=== PATIENT | female | born 1945 | race Caucasian/White ===

== ENCOUNTER → 2016-09-03 | Outpatient (CLI) | payer MEDICARE ==
--- NOTE | 2016-09-05 15:41 | PE ---
Nuclear medicine PET/CT HISTORY: Multiple myeloma Patient received 12.5 mCi F-18 FDG intravenously. Delayed scanning was performed from the skull throu gh the feet, whole-body exam. Exam correlated to the thoracic MRI 06 April 2016 Neck and chest: No suspicious hypermetabolic uptake. No evident adenopathy. Ill-defined area of incre ased attenuation present in the right upper lobe measures approximately 1.5 cm. Port-A-Cath present i n the left pectoral region, catheter tip within the superior vena cava. Abdomen pelvis: The liver shows a hypodense focus in the left lobe measuring 1 cm in size. Calcified fibroids within the uterus. No retroperitoneal adenopathy. Osseous structures: Diffuse areas of punched-out lesions present involving the posterior pelvis, sacr um, thoracic and lumbar spine, cervical spine and calvarium. No hypermetabolic uptake with the except ion of C6, SUV 4.5. Greater trochanters shows some mild increased uptake, SUV 3.5. IMPRESSION: The bulk of the abnormal bone lesions do not show associated hypermetabolic uptake, addit ional findings above.
== END | disposition home or self-care (01) ==
LOC: RADPETMAIN 08:17
PROVIDERS: ATTEND Internal Medicine Hematology & Oncology
DX: C90.00 Multiple myeloma not having achieved remission (principal); M89.8X9 Other specified disorders of bone, unspecified site
CPT/HCPCS: 78815; A9552

== ENCOUNTER → 2016-09-21 | Outpatient (CLI) | payer MEDICARE ==
--- NOTE | 2016-09-21 10:52 | XR ---
EXAMINATION TYPE: XR cervical spine comp DATE OF EXAM: 09/21/2016 10:39 AM COMPARISON: NONE HISTORY: Pain TECHNIQUE: Four views are submitted. FINDINGS: The odontoid is intact. There are no compression deformities. The prevertebral soft tissue structur es are within normal limits. Severe degenerative disc disease C5-C6 with sclerotic changes involving the endplates. Retrolisthesis of 2 mm at C5. Moderate degenerative disc disease C4-5 and C6-C7. Face t arthropathy at all levels. Foraminal encroachment at levels C3-C6. Mediport catheter noted. IMPRESSION: 1. Bilevel degenerative disc disease with severe changes at C5-C6 with vertebral body sclerosis which likely is discogenic. Facet arthropathy noted. Multilevel foraminal encroachment, correlate with MRI
== END | disposition home or self-care (01) ==
LOC: RADXRMAIN 10:26
PROVIDERS: ATTEND Internal Medicine Hematology & Oncology
DX: M50.321 Other cervical disc degeneration at C4-C5 level (principal); M46.92 Unspecified inflammatory spondylopathy, cervical region; C90.00 Multiple myeloma not having achieved remission; Z87.01 Personal history of pneumonia (recurrent)
CPT/HCPCS: 72050

== ENCOUNTER → 2016-11-01 | Outpatient (CLI) | payer MEDICARE ==
--- NOTE | 2016-11-01 17:00 | MR ---
MRI CERVICAL SPINE: CLINICAL HISTORY: Multiple myeloma and disc disease per order. Neck pain with left arm pain or weakne ss for 3 to 4 weeks per patient TECHNIQUE: Multiplanar, multisequence imaging of the cervical spine is performed without and with IV contrast, 10 cc of gadolinium was given intravenously. COMPARISON: PET/CT September 03, 2016. FINDINGS: Coronal images show levoconvex scoliosis centered in the upper thoracic spine. Sagittal weston ges of the cervical spine show the craniocervical junction to appear within normal limits. The cervi tamara and upper thoracic spinal cord is normal in course, caliber, and signal. Vertebral alignment is anatomic. The vertebral body heights are normal. There is moderate disc space narrowing C5-C6 level. Small posterior disc herniations are seen C4-C5 and C5-C6 level on sagittal images. Corresponding to area of PET abnormality there is diminished T1 and heterogeneous fairly isointense T2 signal with brito ggestion of heterogeneous enhancement centered at C5-C6 disc space involving C5 and C6 vertebra diffu sely. There is a 1.5 cm mucous retention cyst or polyp in the left inferior maxillary sinus on sagitt al image 2. Axial images show C2-C3 and C3-C4 levels to appear within normal limits. Axial images at C4-C5 level show mild broad based posterior disc protrusion mildly effacing anterior thecal sac, bilateral neural foramina are patent. Axial images at C5-C6 level show broad-based posterior disc protrusion effacing anterior thecal sac a nd causing mild bilateral neural foraminal narrowing. Axial images at C6-C7 and C7-T1 levels are felt within normal limits. IMPRESSION: Area of concern on PET/CT is centered at C5-C6 disc space with involvement of C5 and C6 v ertebra noted most prominent on the T1-weighted images, not typical appearance for myeloma, discitis/ osteomyelitis would need to be considered given the contiguous appearance and corresponding PET findi ngs. Clinical correlation advised. A Yellow message has been communicated to Jose Jorge MD via the [employer] ([employer] Critical [employer] system on 11/01/2016 4:57 PM, Message ID [id number].
== END | disposition home or self-care (01) ==
LOC: RADMRIMAIN 14:34
PROVIDERS: ATTEND Internal Medicine Hematology & Oncology
DX: C90.00 Multiple myeloma not having achieved remission (principal); M50.30 Other cervical disc degeneration, unspecified cervical region
CPT/HCPCS: 72156; A9577

== ENCOUNTER 2018-01-18 10:41 | Emergency (ER) | payer MEDICARE ==
--- NOTE | 2018-01-18 12:08 | ED ---
Fall HPI - General Chief Complaint: Fall Stated Complaint: fall, eye injury Time Seen by Provider: 01/18/18 11:18 Source: patient, RN notes reviewed Mode of arrival: ambulatory - History of Present Illness Initial Comments: This is a 72-year-old female who presents with complaints of left-sided facial pain and eye pain. She states she fell 2 days ago landing any woodpile striking her face and her head. No loss of consciousness denies any complaints of neck or back pain or other injuries. 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 She states her last pressure of her left eye was 21. She is concerned about this she denies any blindness or blurry vision she is complaining of left orbital pain but again no other injuries. She states her last tetanus shot was well within the last 10 years. No other modifying factors. MD Complaint: fall - Related Data Home Medications Medication Instructions Recorded Confirmed Zolpidem [Ambien] 10 mg PO HS 05/08/15 01/18/18 Aspirin EC [Ecotrin Low Dose] 81 mg PO DAILY 01/18/18 01/18/18 Brimonidine Tartrate [Alphagan P 1 drop BOTH EYES BID 01/18/18 01/18/18 0.2% Ophth Soln] Brinzolamide [Azopt 1% Ophth Susp] 1 drop BOTH EYES BID 01/18/18 01/18/18 Dexamethasone 20 mg PO FR 01/18/18 01/18/18 Lenalidomide [Revlimid] 10 mg PO DIRECTED 01/18/18 01/18/18 Omeprazole 40 mg PO DAILY 01/18/18 01/18/18 amLODIPine [Norvasc] 2.5 mg PO BID 01/18/18 01/18/18 Allergies Allergy/AdvReac Type Severity Reaction Status Date / Time Sulfa (Sulfonamide Allergy Rash/Hives Verified 01/18/18 12:24 Antibiotics) Review of Systems ROS Statement: Those systems with pertinent positive or pertinent negative responses have been documented in the HPI. ROS Other: All systems not noted in ROS Statement are negative. Past Medical History Past Medical History: Cancer, Eye Disorder, Hypertension, Skin Disorder Additional Past Medical History / Comment(s): Dx. with Multiple Myeloma in 2010 , has a rash on her shoulders, Dr. Jorge is aware. Just finished series of antxb. for bronchitis. Recent abnormal labs. Glaucoma. History of Any Multi-Drug Resistant Organisms: None Reported Past Surgical History: Appendectomy Additional Past Surgical History / Comment(s): Stem cell transplant in 2011, port placement in 2010. Past Anesthesia/Blood Transfusion Reactions: No Reported Reaction Past Psychological History: No Psychological Hx Reported Smoking Status: Never smoker Past Alcohol Use History: None Reported Past Drug Use History: None Reported - Past Family History Mother Family Medical History: No Reported History General Exam - General Exam Comments Initial Comments: This is a well-developed well-nourished awake alert oriented 3 female she demonstrates a Juan Carlos Coma Scale of 15 Limitations: no limitations General appearance: alert, in no apparent distress Head exam: Present: normocephalic Eye exam: Present: normal appearance, PERRL, EOMI, other (Intraocular pressure on the right is 10 on the left is 14) ENT exam: Present: normal oropharynx, mucous membranes moist, other ( Periorbital edema and ecchymosis and healing abrasion noted to the inferior orbit on the left no definite step-off or crepitation there is some tenderness palpation of the left eyebrow left forehead and CMH. There is abrasion seen over the knees but no tenderness palpation no evidence of any intranasal blood.) Neck exam: Present: normal inspection. Absent: tenderness, meningismus, lymphadenopathy Respiratory exam: Present: normal lung sounds bilaterally. Absent: respiratory distress, wheezes, rales, rhonchi, stridor Cardiovascular Exam: Present: regular rate, normal rhythm, normal heart sounds. Absent: systolic murmur, diastolic murmur, rubs, gallop, clicks GI/Abdominal exam: Present: soft Extremities exam: Present: normal inspection, full ROM, normal capillary refill. Absent: tenderness, pedal edema, joint swelling, calf tenderness Back exam: Present: full ROM, other (Evidence of mild kyphosis). Absent: tenderness, CVA tenderness (R), CVA tenderness (L), muscle spasm, vertebral tenderness Neurological exam: Present: alert, oriented X3, CN II-XII intact Psychiatric exam: Present: normal affect, normal mood Skin exam: Present: warm, dry. Absent: intact, normal color (Is noted above in the facial exam) Course Vital Signs 01/18/18 11:12 Temperature 98.3 F Pulse Rate 81 Respiratory 20 Rate Blood Pressure 146/89 O2 Sat by Pulse 97 Oximetry Medical Decision Making - Medical Decision Making I did discuss [employer] the patient and her patient will be discharged. [id number]-pay-[id number] pain medication when necessary - Radiology Data Radiology results: report reviewed (I did review the imaging and reports no acute findings.), image reviewed Disposition Clinical Impression: Fall, Facial contusion, Facial abrasion Disposition: HOME SELF-CARE Condition: Good Instructions: Abrasion (ED), Facial Contusion (ED) Additional Instructions: Keep the wounds clean and dry, avoid direct sunlight until it is fully healed Is patient prescribed a controlled substance at d/c from ED?: No Referrals: Noe Ross DO [Primary Care Provider] - 1-2 days
--- NOTE | 2018-01-18 12:15 | CT ---
EXAMINATION TYPE: CT brain wo con, CT orbits wo con DATE OF EXAM: 01/18/2018 COMPARISON: PET/CT dated 09/03/2016 HISTORY: Fall, eye injury CT DLP: 1348.80 mGycm Automated exposure control for dose reduction was used. TECHNIQUE: CT scan of the head and orbits is performed without contrast. FINDINGS: There is no acute intracranial hemorrhage or midline shift identified. There is diffuse v entricular and sulcal prominence consistent with diffuse age-related cerebral atrophy. There is low- attenuation in the periventricular white matter consistent with chronic small vessel ischemic change. There is a diffuse patulous appearance with innumerable osteolytic lesions seen within the calvarium compatible with this patient's known history of multiple myeloma. There is a 1.9 cm left maxillary sinus mucosal retention cyst. Scant polypoid mucosal thickening is s een within the anterior ethmoid sinuses and scant mucosal thickening is seen within the right maxilla ry sinus on coronal images. Remaining visualized paranasal sinuses and mastoid air cells are well aer ated. The orbits are intact without evidence of fracture. The orbits are symmetric. Globes are unrema rkable maintain a rounded morphology. Extraocular muscles and optic nerves are also symmetric. Lenses are atrophic however appear in place. No significant preseptal or post septal soft tissue swelling i s seen. Mild left infraorbital soft tissue swelling is noted. IMPRESSION: 1. No acute intracranial hemorrhage or midline shift. Senescent changes. 2. Minimal left infraorbital subcutaneous soft tissue swelling without postseptal edema, evidence of globe rupture, lens displacement placement, or orbital fracture.
[2018-01-18 13:01] VITALS: BP 139/75; PULSE 72; RESP 16; TEMP 97.6
== END 2018-01-18 13:00 | disposition home or self-care (01) ==
LOC: EC 10:41
DX: S00.83XA Contusion of other part of head, initial encounter (principal); R40.2412 Glasgow coma scale score 13-15, at arrival to emergency department; I10 Essential (primary) hypertension; H40.9 Unspecified glaucoma; Z85.79 Personal history of other malignant neoplasms of lymphoid, hematopoietic and related tissues; Z90.49 Acquired absence of other specified parts of digestive tract; Z94.84 Stem cells transplant status; Z79.52 Long term (current) use of systemic steroids; Z79.899 Other long term (current) drug therapy; Z88.2 Allergy status to sulfonamides; W01.198A Fall on same level from slipping, tripping and stumbling with subsequent striking against other object, initial encounter
CPT/HCPCS: 70450; 70480; 99283

== ENCOUNTER → 2019-06-04 | Outpatient (CLI) | payer MEDICARE ==
--- NOTE | 2019-06-04 15:35 | XR ---
EXAMINATION TYPE: XR chest 2V DATE OF EXAM: 06/04/2019 COMPARISON: Chest x-ray 02/15/2011 and PET/CT 09/03/2016 HISTORY: Cough and dyspnea, multiple myeloma TECHNIQUE: Frontal and lateral views of the chest are obtained. FINDINGS: Increased lung volumes suggest underlying COPD. There is a spinal curvature. There is a por t in the left pectoral region, catheter courses to the level of the superior vena cava. Multiple ante rior wedge compression deformities in the midthoracic and lower thoracic spine and kyphosis are again noted. Thoracic spondylosis is present. There is no pleural effusion or pneumothorax seen. Ill-defin ed area of increased attenuation between the anterior first and second ribs is somewhat more conspicu ous on today's exam. There is increased retrosternal airspace. Aorta is dense. The cardiac silhouette size is within normal limits. The osseous structures are intact, bone mineralization is reduced. IMPRESSION: There is a focus of increased density in the right upper lobe which is chronic and is in determinate. Osteopenia, multiple thoracic compression deformities are chronic.
== END | disposition home or self-care (01) ==
LOC: RADXRYALE 14:56
PROVIDERS: ATTEND Physician Assistant Medical
DX: J98.4 Other disorders of lung (principal); R05 Cough; R06.00 Dyspnea, unspecified
CPT/HCPCS: 71046

== ENCOUNTER → 2019-12-11 | Outpatient (CLI) | payer MEDICARE | END | disposition home or self-care (01) | LOC: LABWHC1 13:17 | PROVIDERS: ATTEND Radiology Diagnostic Radiology | DX: Z11.59 Encounter for screening for other viral diseases (principal) ==

== ENCOUNTER 2019-12-12 13:34 | Day surgery (SDC) | payer MEDICARE ==
[2019-12-11 12:11] VITALS: BMI 19.5
[2019-12-12 14:16] VITALS: RESP 16; TEMP 97.9
[2019-12-12] MEDS ORDERED: IOPAMIDOL-370 50ML BTL INJ ONE (14:39)
[2019-12-12 15:09] VITALS: BP 132/76; PULSE 76
--- NOTE | 2019-12-12 16:18 | IR ---
Port-A-Cath check HISTORY: Malfunctioning Port-A-Cath Patient's Port-A-Cath was accessed by the cytology laboratory manager nurse. Under real-time fluoroscopy gentle hand injection of contrast material was performed. Patient remaine d in stable condition and was discharged without incident. No complications. Following the procedure the catheter was flushed with heparin flush. A 0.2 minutes fluoroscopy time. 313 intraoperative image s. FINDINGS: There is no leak within the catheter. Port is present in the left pectoral region. Catheter courses into the superior vena cava. Contrast courses through the catheter but does not course direc tly from the catheter tip, there is contrast coursing along the distal tip the catheter and refluxing cephalad. IMPRESSION: Fibrin sheath at the distal tip of the catheter. The catheter tip is intraluminal within the superior vena cava. No Port-A-Cath fracture. No leak.
== END 2019-12-12 15:03 | disposition home or self-care (01) ==
LOC: CATHCVL 13:34
PROVIDERS: ATTEND Radiology Diagnostic Radiology
DX: T85.618A Breakdown (mechanical) of other specified internal prosthetic devices, implants and grafts, initial encounter (principal); C90.00 Multiple myeloma not having achieved remission; Z79.82 Long term (current) use of aspirin; Z79.52 Long term (current) use of systemic steroids; Z79.891 Long term (current) use of opiate analgesic; Z79.899 Other long term (current) drug therapy; Z88.2 Allergy status to sulfonamides; M54.5 Low back pain; Z87.01 Personal history of pneumonia (recurrent); Z98.51 Tubal ligation status; Z98.890 Other specified postprocedural states; L22 Diaper dermatitis
CPT/HCPCS: 36598; Q9967

== ENCOUNTER → 2020-03-26 | Day surgery (SDC) | payer MEDICARE ==
[2020-03-25 08:56] VITALS: BMI 20.5
[~2020-03-26] MED LIST: IOPAMIDOL-370 50ML BTL INJ ONE
[2020-03-26 10:51] VITALS: BP 125/91; PULSE 67; RESP 18; TEMP 98.2
--- NOTE | 2020-05-01 09:31 | IR ---
Fluoroscopic portogram([facility]). HISTORY: Device malfunction. The patient presented to the CV[facility] with a Cai needle within the port. Preliminary fluoroscopy demonst rated the catheter to be intact. 0.2 minutes of fluoroscopy. No aspirate could be obtained. Theref ore an injection for IMPRESSION: 1. See above..
== END ==
LOC: CATHCVL 10:27
PROVIDERS: ATTEND Radiology Diagnostic Radiology
DX: T85.618A Breakdown (mechanical) of other specified internal prosthetic devices, implants and grafts, initial encounter (principal); Z88.2 Allergy status to sulfonamides
CPT/HCPCS: 36598; Q9967

== ENCOUNTER → 2020-06-26 | Outpatient (CLI) | payer MEDICARE ==
[2020-06-26 13:18] LABS: African American GFR (CKD) >90 (>60 ml/min/1.73 sqM); Blood Urea Nitrogen 11 mg/dL (7-17); Non-African American GFR(CKD) 89 (>60 ml/min/1.73 sqM)
--- NOTE | 2020-06-27 17:56 | CT ---
EXAMINATION TYPE: CT abdomen pelvis w con DATE OF EXAM: 06/26/2020 COMPARISON: PET/CT 09/03/2016. MR 04/06/2016. HISTORY: Multiple myeloma, epigastric mass CT DLP: 359.7 mGycm Automated exposure control for dose reduction was used. TECHNIQUE: Helical acquisition of images was performed from the lung bases through the pelvis. CONTRAST: Performed with Oral Contrast and with IV Contrast, patient injected with 100 mL of Isovue 300. FINDINGS: LUNG BASES: No significant abnormality is appreciated. LIVER/GB: No acute abnormality is appreciated. A 0.9 cm low attenuating focus in the right hepatic do me without suspicious features and probable benign cyst. Cholecystectomy with prominence of the commo n bile duct, likely postsurgical change. PANCREAS: No significant abnormality is seen. SPLEEN: No significant abnormality is seen. ADRENALS: No significant abnormality is seen. KIDNEYS: Left greater than right renal pelvic ectasia. No obstructing calculus or renal mass seen. FREE AIR: No free air is visualized. RETROPERITONEAL ADENOPATHY: None visualized REPRODUCTIVE ORGANS: No significant abnormality is seen URINARY BLADDER: Mildly distended urinary bladder. PELVIC ADENOPATHY: None visualized. OSSEOUS STRUCTURES: No acute abnormality is seen. Diffuse heterogeneous trabecular pattern of the ax ial skeleton including the visualized thoracolumbar spine and pelvic bone. BOWEL: No acute abnormality is seen. Small fat-containing periumbilical hernia. OTHER: None. IMPRESSION: NO ACUTE ABNORMALITY. Known diffuse heterogeneous osseous trabecular pattern without acute osseous abnormality. Bilateral renal pelvic ectasia without obstructing calculus seen. Incidental finding as above.
== END | disposition home or self-care (01) ==
LOC: RADCTMAIN 12:37
PROVIDERS: ATTEND Internal Medicine Hematology & Oncology
DX: N28.89 Other specified disorders of kidney and ureter (principal); R19.06 Epigastric swelling, mass or lump; C90.00 Multiple myeloma not having achieved remission; Z88.2 Allergy status to sulfonamides
CPT/HCPCS: 82565; 84520; 74177; 36415; Q9967

== ENCOUNTER → 2020-08-10 | Outpatient (CLI) | payer MEDICARE ==
--- NOTE | 2020-08-10 13:21 | MR ---
EXAMINATION TYPE: MR bill/lspine wo/w con DATE OF EXAM: 08/10/2020 COMPARISON: 04/06/2016 and 09/03/2016 HISTORY: 75-year-old female C90.00 Multiple myeloma, M54.5 back pain Technique: Multiplanar, multisequence images of the thoracic and lumbar spine were obtained before an d after administration of 5.0 mL intravenous Gadavist gadolinium contrast. FINDINGS: THORACIC SPINE: Levoconvex scoliosis along the upper third thoracic spine. Accentuated lower thoracic kyphosis redemonstrated. Degenerative grade 1 anterolisthesis T2-T3 and T3 -T4 with hypertrophic facet arthropathy and ligamentum flavum thickening. Moderate degenerative disc disease throughout with desiccated and mild bulging discs. Hypertrophic facet arthropathy at multiple levels. Mild spinal canal stenosis with abutment of both dorsal and ventral cord at T3-T4 appears slightly mo re pronounced. Encroachment on the ventral spinal canal secondary to endplate spurring at T10-T11 mil dly narrowing the spinal canal. No teo canal compromise or significant spinal canal stenosis seen. No abnormal enhancement seen within the spinal canal. Diffuse heterogeneity of the marrow appears improved from 04/06/2016 with increasing regions of more f atty marrow. Mild vertebral compression injuries of T9, T10, T11, T12 are unchanged. Minimal superior endplate def ormity of T3 is also unchanged. No new vertebral compression collapse. Moderate bilateral foraminal stenosis at T12-L1 and at T9-T11 levels. LUMBAR SPINE: There is a 1.1 cm enhancing lesion within the posterior L5 vertebral body. Additional areas of low T1 weighted signal suggested within the posterior S1 segment and far right la teral S2 and S3 vertebral segments showing postcontrast enhancement. There also seems to be enhancement centered at the left L4 posterior elements and left T4-T5 facet lola int, for example, sagittal T1 image 5 and axial T1 images 1 and 2. There is some anterior extension t owards the left lateral recess that shows enhancement and slight mass effect onto the exiting left S1 nerve root. Superior and inferior endplate Schmorl's nodes of L4 are new from 2009. Hypertrophic facet arthropathy mid to lower lumbar spine. There seems to be associated sinonasal cyst s projecting posteriorly at L5-S1 measuring up to 1.3 cm. Conus medullaris is normal. Moderate multilevel degenerative disc disease with desiccated and bulging discs. Accentuated lumbar lordosis. Trace grade 1 anterolisthesis L5-S1 is unchanged. Ligamentum flavum thickening lower lumbar spine. Mild overall narrowing of the spinal canal at L4-L5. No high-grade canal compromise. On the right, changes result in mild neural foraminal stenosis at L3-L4, L4-L5, L5-S1. On the left, changes result in mild neural foraminal stenoses at L3-L4. Moderate to severe at L4-L5 a nd moderate at L5-S1. COMBINED IMPRESSION: THORACIC SPINE: 1. Overall marrow heterogeneity shows improvement from 04/06/2016 with areas of more fatty marrow now. Findings suggest improvement from 2016. No obvious suspicious enhancing mass identified. 2. Moderate degenerative disc disease throughout. Scattered hypertrophic facet arthropathy and ligame ntum flavum thickening especially upper thoracic spine. Degenerative grade 1 anterolisthesis at T2-T3 and T3-T4 are similar. 3. Mild spinal canal stenosis at T3-T4 has increased now with abutment of both the dorsal and ventral cord. Mild canal narrowing at T10-T11 is unchanged. No teo canal compromise or evident cord compre ssion. 4. Mild vertebral compression injuries of T3, T9, T10, T11, T12 remain unchanged. No new vertebral co mpression collapse. LUMBAR SPINE: 5. Areas of heterogeneous marrow with a few showing postcontrast enhancement particularly posterior L 5, anterior S1, and towards the right lateral aspect of S2 and S3. A few active myelomatous lesions h ere are not excluded. 6. Additional low T1 signal with corresponding enhancement centered at the left L5 posterior elements and left L5-S1 facet joint. This could relate to severe facet arthropathy with synovial cyst formati on versus additional myelomatous involvement with slight extraosseous extension to mildly impinge the traversing left S1 nerve root (postcontrast axial series 1401 image 1). 7. Mild/moderate degenerative disc disease. Hypertrophic facet arthropathy mid to lower lumbar spine and ligamentum flavum thickening. Changes have progressed from 2009. Mild overall spinal canal narrow ing at L4-L5. 8. Variable mild neuroforaminal stenoses. Moderate to severe on the left at L4-L5 and moderate at L5- S1.
== END | disposition home or self-care (01) ==
LOC: RADMRIMAIN 10:09
PROVIDERS: ATTEND Internal Medicine Hematology & Oncology
DX: M48.04 Spinal stenosis, thoracic region (principal); M48.061 Spinal stenosis, lumbar region without neurogenic claudication; M43.14 Spondylolisthesis, thoracic region; M51.34 Other intervertebral disc degeneration, thoracic region; M51.36 Other intervertebral disc degeneration, lumbar region; M47.814 Spondylosis without myelopathy or radiculopathy, thoracic region; M46.04 Spinal enthesopathy, thoracic region; M46.06 Spinal enthesopathy, lumbar region; S24.103A Unspecified injury at T7-T10 level of thoracic spinal cord, initial encounter; S24.104A Unspecified injury at T11-T12 level of thoracic spinal cord, initial encounter; C90.00 Multiple myeloma not having achieved remission
CPT/HCPCS: 72157; 72158; A9585

== ENCOUNTER 2020-11-05 12:16 | Day surgery (SDC) | payer MEDICARE ==
[2020-11-04 08:39] VITALS: BMI 20.7
[~2020-11-05 12:16] MED LIST changes: +ACETAMINOPHEN TAB 500 MG TAB PO PRN; +DEXAMETHASONE SOD PHOSPHATE 4 MG/ML 1 ML VIAL IV ONE; +HEPARIN SODIUM,PORCINE/PF 5,000 UNIT/0.5 ML SYRINGE SQ PRN; +HYDROmorphone 0.5 MG/0.5 ML SYRINGE IVP PRN; -IOPAMIDOL-370 50ML BTL INJ ONE; +LACTATED RINGERS 1,000 ML IV SCH; +ONDANSETRON 4 MG/2 ML VIAL IVP ONE
[2020-11-05 12:47] VITALS: RESP 16; TEMP 98.4
[2020-11-05] MEDS ORDERED: LIDOCAINE 1% (10MG/ML) FOR IV START INTRADERMA ONE (12:56)
--- NOTE | 2020-11-05 13:22 | P.GSHP ---
History of Present Illness H&P Date: 11/05/20 Chief Complaint: Multiple myeloma 75-year-old female known to our service. Patient here for Port-A-Cath removal. Patient had port placed 10-12 years ago for multiple myeloma. She states it is not worked for the last few years. No pain there. She had a fluoroscopy in [place] which showed the catheter be intact but no flow when interventional radiology tried to access it. Past Medical History Past Medical History: Cancer, Eye Disorder, Hypertension, Skin Disorder Additional Past Medical History / Comment(s): Glaucoma History of Any Multi-Drug Resistant Organisms: C-DIFF Date of last positivie culture/infection: 2010 MDRO Source:: stool Past Surgical History: Appendectomy Additional Past Surgical History / Comment(s): Stem cell transplant in 2010, port placement in 2010. Past Anesthesia/Blood Transfusion Reactions: No Reported Reaction Smoking Status: Never smoker - Past Family History Mother Family Medical History: No Reported History Medications and Allergies Home Medications Medication Instructions Recorded Confirmed Type Zolpidem [Ambien] 10 mg PO HS 05/08/15 11/05/20 History Aspirin EC [Ecotrin Low Dose] 81 mg PO DAILY 01/18/18 11/05/20 History Brimonidine Tartrate [Alphagan P 1 drop BOTH EYES BID 01/18/18 11/05/20 History 0.2% Ophth Soln] Lenalidomide [Revlimid] 10 mg PO DIRECTED 01/18/18 11/05/20 History Omeprazole 40 mg PO DAILY 01/18/18 11/05/20 History amLODIPine [Norvasc] 2.5 mg PO BID 01/18/18 11/05/20 History dexAMETHasone [Dexamethasone] 4 mg PO FR 01/18/18 11/05/20 History Dorzolamide 2% [Trusopt 2%] 1 drops BOTH EYES BID 12/11/19 11/05/20 History HYDROcodone/APAP 5-325MG [[facility] 1 tab PO Q6HR PRN 11/04/20 11/05/20 History 5-325] Allergies Allergy/AdvReac Type Severity Reaction Status Date / Time Sulfa (Sulfonamide Allergy Rash/Hives Verified 11/05/20 12:43 Antibiotics) Surgical - Exam Vital Signs Temp Pulse Resp BP Pulse Ox 98.4 F 88 16 146/81 99 11/05/20 12:38 11/05/20 12:38 11/05/20 12:38 11/05/20 12:38 11/05/20 12:38 Physical exam: General: Well-developed, well-nourished HEENT: Normocephalic, sclerae nonicteric Abdomen: Nontender, nondistended Extremities: No edema Neuro: Alert and oriented Chest: Left-sided port in place without abnormalities noted Assessment and Plan (1) Multiple myeloma Narrative/Plan: 75-year-old female with multiple myeloma and malfunctioning Port-A-Cath. We'll proceed with Port-A-Cath removal. Patient and I discussed at length that the catheter may be pinched between the first rib and clavicle and that attempts at removal could lead to the catheter breaking. This could then results in the catheter moving through the venous system. Consult to vascular surgery may be required for their assistance and removal if this is the case. Risks of bleeding, infection, arrhythmia, catheter breakage discussed. She understands and wishes to proceed. Current Visit: Yes Status: Acute Code(s): C90.00 - MULTIPLE MYELOMA NOT HAVING ACHIEVED REMISSION SNOMED Code(s): 804144661
[2020-11-05] MEDS ORDERED: fentaNYL (PF) 50 MCG/ML 2 ML AMP ONE (13:30)
[2020-11-05] MEDS ORDERED: MIDAZOLAM 2 MG/2 ML VIAL ONE (13:30)
[2020-11-05] MEDS ORDERED: LIDOCAINE 1% INJ 10MG/ML (20 ML MDV) SQ ONE (13:30)
[2020-11-05] MEDS ORDERED: PROPOFOL 10 MG/ML 20 ML VIAL IV ONE (13:30)
[2020-11-05] MEDS ORDERED: NALOXONE 0.4 MG/ML 1 ML VIAL IV PRN (14:24)
--- NOTE | 2020-11-05 14:33 | P.OP ---
Date of Procedure: 11/05/20 Procedure(s) Performed: PREOPERATIVE DIAGNOSIS: Multiple myeloma, malfunctioning catheter POSTOPERATIVE DIAGNOSIS: Same PROCEDURE: Port-A-Cath removal SURGEON: Monalisa EBL: Minimal ANESTHESIA: Sedation COMPLICATIONS: Unable to remove catheter itself only port OPERATIVE PROCEDURE: Patient was placed in the supine position. The patient was sedated per anesthesia that time. The chest was prepped and draped in the usual sterile fashion. The skin was localized with Marcaine solution. The previous incision was re-incised using a scalpel. The port was easily dissected using blunt dissection and cautery. Unfortunately the patient's catheter was unable to be withdrawn by manual traction. Multiple attempts were made. I spoke with vascular surgery during the procedure. It was decided that I would cut the catheter after ligating it and remove the port. Patient will follow up with vascular surgery to discuss options of catheter removal postoperatively. The catheter was cut on the port side after 2-0 silk sutures were used to ligate the catheter. The subcutaneous tissues were reapproximated using 3-0 Vicryl sutures. The skin was reapproximated using 4-0 Monocryl sutures. Skin glue was then applied. DISPOSITION: Stable to recovery room
--- NOTE | 2020-11-05 15:13 | XR ---
EXAMINATION TYPE: XR chest 1V portable DATE OF EXAM: 11/05/2020 COMPARISON: Chest x-ray 06/04/2019 HISTORY: Port removal TECHNIQUE: Single frontal view of the chest is obtained. FINDINGS: Port-A-Cath tubing remains in place. Port is no longer seen. No evident pneumothorax or pl eural effusion. Apical densities again noted. Cardiac mediastinal silhouette is stable accounting for differences in rotation. No other significant interval change. IMPRESSION: Order catheter tubing remains in place, port has been removed. Additional findings above.
[2020-11-05 15:33] VITALS: BP 127/75; PULSE 63
== END 2020-11-05 15:38 | disposition home or self-care (01) ==
LOC: OR 12:16
PROVIDERS: ATTEND Surgery
DX: Z45.2 Encounter for adjustment and management of vascular access device (principal); C90.00 Multiple myeloma not having achieved remission; I10 Essential (primary) hypertension; K21.9 Gastro-esophageal reflux disease without esophagitis; Z79.82 Long term (current) use of aspirin; Z79.899 Other long term (current) drug therapy; Z94.84 Stem cells transplant status; Z88.2 Allergy status to sulfonamides
CPT/HCPCS: 36590; 71045; J2250; J1100; J0690; J2405; J2001; J3010; J2704; J1644

== ENCOUNTER 2021-05-13 20:08 | Emergency (ER) | payer MEDICARE ==
[2021-05-13 20:12] VITALS: TEMP 97
[2021-05-13] MEDS ORDERED: MORPHINE SULFATE 2 MG/ML SYRINGE IVP STA (20:34)
[2021-05-13] MEDS ORDERED: ONDANSETRON 4 MG/2 ML VIAL IVP STA (20:34)
[2021-05-13 20:59] LABS: Basophils % (A) 1 %; Eosinophils # (A) 0.1 k/uL (0-0.7); Eosinophils % (A) 3 %; HCT 39.8 % (34.0-46.0); HGB 13.1 gm/dL (11.4-16.0); Lymphocytes # (A) 0.7 k/uL (1.0-4.8); Lymphocytes % (A) 25 %; MCH 33.6 pg (25.0-35.0); MCV 101.9 fL (80.0-100.0); Macrocytosis Slight; Mean Platelet Volume 7.8; Monocytes # (A) 0.4 k/uL (0-1.0); Monocytes % (A) 14 %; Neutrophils # (A) 1.6 k/uL (1.3-7.7); Neutrophils % (A) 54 %; Platelet Count 250 k/uL (150-450); RBC 3.91 m/uL (3.80-5.40); WBC 2.9 k/uL (3.8-10.6)
[2021-05-13 21:03] LABS: Appearance,Urine Clear (Clear); Bacteria,Urine Occasional /hpf; Bilirubin,Urine Negative (Negative); Blood,Urine Small (Negative); Color,Urine Light Yellow; Glucose,Urine (UA) Negative (Negative); Hyaline Casts,Urine 1 /lpf (0-2); Ketones,Urine Negative (Negative); Leukocyte Esterase,Urine Large (Negative); Mucus,Urine Rare /hpf; Nitrite,Urine Negative (Negative); Protein,Urine Negative (Negative); RBC,Urine 3 /hpf (0-5); Squamous Epithelial Cell,Urine <1 /hpf (0-4); Urobilinogen,Urine <2.0 mg/dL (<2.0); WBC,Urine 13 /hpf (0-5)
[2021-05-13 21:10] LABS: Albumin 4.2 g/dL (3.5-5.0); Calcium 10.1 mg/dL (8.4-10.2); Potassium 3.8 mmol/L (3.5-5.1); Total Bilirubin 0.3 mg/dL (0.2-1.3); Total Protein 7.1 g/dL (6.3-8.2)
--- NOTE | 2021-05-13 21:10 | XR ---
EXAMINATION TYPE: XR ribs LT w pa chest xray DATE OF EXAM: 05/13/2021 COMPARISON: NONE HISTORY: Pain TECHNIQUE: Single view of the chest left views of the ribs are submitted. FINDINGS: The lungs are clear. No Evidence for pneumothorax. No evidence for focal contusion. Medi astinal structures are midline. Evaluation of the ribs demonstrates virtually nondisplaced fracture involving anterior left rib #7. No additional displaced fractures are seen at this time. IMPRESSION: Fracture left rib #7. No evidence for pneumothorax or contusion.
--- NOTE | 2021-05-13 21:16 | ED ---
Fall HPI - General Chief Complaint: Fall Stated Complaint: Fall-Rib pain Time Seen by Provider: 05/13/21 20:15 Source: patient Mode of arrival: ambulatory - History of Present Illness Initial Comments: 75 year-old female patient presents to the emergency department for evaluation of left rib pain after a fall. States she slipped off a curb and landed on the left side. States she has pain to the lateral chest. Hurts to move and take deep breaths. She denies any shortness of breath or cough. Denies hitting her head or losing consciousness. Denies neck or back pain. She takes an aspirin daily. Patient denies any headache, dizziness, weakness, abdominal pain, nausea, vomiting, or difficulties with bowel movements or urination. - Related Data Home Medications Medication Instructions Recorded Confirmed Zolpidem [Ambien] 10 mg PO HS PRN 05/08/15 05/13/21 Aspirin EC [Ecotrin Low Dose] 81 mg PO DAILY 01/18/18 05/13/21 Lenalidomide [Revlimid] 10 mg PO DIRECTED 01/18/18 05/13/21 Omeprazole 40 mg PO DAILY 01/18/18 05/13/21 amLODIPine [Norvasc] 2.5 mg PO BID 01/18/18 05/13/21 Dorzolamide 2% [Trusopt 2%] 1 drops BOTH EYES BID 12/11/19 05/13/21 HYDROcodone/APAP 5-325MG [[place] 1 tab PO Q6HR PRN 11/04/20 05/13/21 5-325] Brimonidine Tartrate/Timolol 1 drop BOTH EYES BID 05/13/21 05/13/21 [Combigan 0.2%-0.5% Eye Drops] Previous Rx's Medication Instructions Recorded Ibuprofen [Motrin] 600 mg PO Q8HR PRN #30 tab 05/13/21 Lidocaine 5% Patch [Lidoderm] 1 patch TOPICAL DAILY #30 patch 05/13/21 Allergies Allergy/AdvReac Type Severity Reaction Status Date / Time Sulfa (Sulfonamide Allergy Rash/Hives Verified 05/13/21 20:57 Antibiotics) Review of Systems ROS Statement: Those systems with pertinent positive or pertinent negative responses have been documented in the HPI. ROS Other: All systems not noted in ROS Statement are negative. Past Medical History Past Medical History: Cancer, Eye Disorder, Hypertension, Skin Disorder Additional Past Medical History / Comment(s): Glaucoma History of Any Multi-Drug Resistant Organisms: C-DIFF Date of last positivie culture/infection: 2010 MDRO Source:: stool Past Surgical History: Appendectomy Additional Past Surgical History / Comment(s): Stem cell transplant in 2010, port placement in 2010. Past Anesthesia/Blood Transfusion Reactions: No Reported Reaction Past Psychological History: No Psychological Hx Reported Smoking Status: Never smoker Past Alcohol Use History: Rare Past Drug Use History: None Reported - Past Family History Mother Family Medical History: No Reported History General Exam Limitations: no limitations General appearance: alert, in no apparent distress, other (This is a well- developed, well-nourished adult female patient in mild distress related to pain.) Eye exam: Present: normal appearance, PERRL, EOMI. Absent: scleral icterus, conjunctival injection, periorbital swelling ENT exam: Present: normal exam, normal oropharynx, mucous membranes moist Respiratory exam: Present: normal lung sounds bilaterally, chest wall tenderness (Left lateral over the mid axillary line). Absent: respiratory distress, wheezes, rales, rhonchi, stridor Cardiovascular Exam: Present: regular rate, normal rhythm, normal heart sounds. Absent: systolic murmur, diastolic murmur, rubs, gallop, clicks GI/Abdominal exam: Present: soft, tenderness (Left upper quadrant), normal bowel sounds. Absent: distended, guarding, rebound, rigid Back exam: Present: normal inspection, other (Nontender, no step-off, no deformity to firm midline palpation of the thoracic and lumbar vertebrae. Full range of motion without pain or limitation.). Absent: vertebral tenderness Neurological exam: Present: alert, oriented X3, CN II-XII intact Psychiatric exam: Present: normal affect, normal mood Skin exam: Present: warm, dry, intact, normal color. Absent: rash Course Vital Signs 05/13/21 05/13/21 05/13/21 20:09 21:12 23:04 Temperature 97 F L Pulse Rate 69 88 75 Respiratory 18 18 16 Rate Blood Pressure 148/89 144/78 136/72 O2 Sat by Pulse 98 95 98 Oximetry Medical Decision Making - Medical Decision Making 75-year-old female patient presents to the emergency department today for evaluation of left rib pain after a fall. Physical examination did reveal left lateral rib tenderness. Left upper quadrant abdominal tenderness. Labs reviewed and revealed low blood cell count, urinalysis showed 13 white blood cells large leukocyte esterase, this will be sent for culture. Did perform chest x-ray with left rib series which showed a fracture to rib #7. Given abdominal tenderness perform CT abdomen and pelvis which was negative for acute abnormalities. Did redemonstrate some lesions in the pelvis consistent with multiple myeloma, patient is aware. We will treat with pain medication, Lidoderm patch, incentive spirometer. She was discharged follow up with a primary care physician for recheck in 1-2 days. We did discuss risk of pneumonia and importance of coughing, deep breathing, incentive spirometer use. Return parameters were discussed in detail. She verbalizes understanding and agrees this plan. My attending is Dr. Mahajan. - Lab Data Result diagrams: 05/13/21 20:51 05/13/21 20:51 Lab Results 05/13/21 05/13/21 05/13/21 Range/Units 20:51 20:51 20:51 WBC 2.9 L (3.8-10.6) k/uL RBC 3.91 (3.80-5.40) m/uL Hgb 13.1 (11.4-16.0) gm/dL Hct 39.8 (34.0-46.0) % MCV 101.9 H (80.0-100.0) fL MCH 33.6 (25.0-35.0) pg MCHC 33.0 (31.0-37.0) g/dL RDW 15.0 (11.5-15.5) % Plt Count 250 (150-450) k/uL MPV 7.8 Neutrophils % 54 % Lymphocytes % 25 % Monocytes % 14 % Eosinophils % 3 % Basophils % 1 % Neutrophils # 1.6 (1.3-7.7) k/uL Lymphocytes # 0.7 L (1.0-4.8) k/uL Monocytes # 0.4 (0-1.0) k/uL Eosinophils # 0.1 (0-0.7) k/uL Basophils # 0.0 (0-0.2) k/uL Macrocytosis Slight Sodium 140 (137-145) mmol/L Potassium 3.8 (3.5-5.1) mmol/L Chloride 105 (98-107) mmol/L Carbon Dioxide 25 (22-30) mmol/L Anion Gap 10 mmol/L BUN 13 (7-17) mg/dL Creatinine 0.79 (0.52-1.04) mg/dL Est GFR (CKD-EPI)AfAm 86 (>60 ml/min/1.73 sqM) Est GFR (CKD-EPI)NonAf 75 (>60 ml/min/1.73 sqM) Glucose 96 (74-99) mg/dL Calcium 10.1 (8.4-10.2) mg/dL Total Bilirubin 0.3 (0.2-1.3) mg/dL AST 27 (14-36) U/L ALT 12 (4-34) U/L Alkaline Phosphatase 89 (38-126) U/L Total Protein 7.1 (6.3-8.2) g/dL Albumin 4.2 (3.5-5.0) g/dL Urine Color Light Yellow Urine Appearance Clear (Clear) Urine pH 5.0 (5.0-8.0) Ur Specific [place] 1.010 (1.001-1.035) Urine Protein Negative (Negative) Urine Glucose (UA) Negative (Negative) Urine Ketones Negative (Negative) Urine Blood Small H (Negative) Urine Nitrite Negative (Negative) Urine Bilirubin Negative (Negative) Urine Urobilinogen <2.0 (<2.0) mg/dL Ur Leukocyte Esterase Large H (Negative) Urine RBC 3 (0-5) /hpf Urine WBC 13 H (0-5) /hpf Ur Squamous Epith Cells <1 (0-4) /hpf Urine Bacteria Occasional H (None) /hpf Hyaline Casts 1 (0-2) /lpf Urine Mucus Rare H (None) /hpf - Radiology Data Radiology results: report reviewed, image reviewed X-ray of the left ribs and chest are obtained. There is evidence for fracture of rib #7 on the left. No evidence for pneumothorax or contusion. CT abdomen and pelvis was obtained. Report was reviewed in its entirety. Impression by Dr. Rendon shows no evidence of acute abnormality of the abdomen and pelvis. Bony changes in the pelvis and lumbar spine consistent with myeloma. I do not see a significant change compared to old exam. No definite acute fracture seen. Disposition Clinical Impression: Fracture of rib of left side Disposition: HOME SELF-CARE Condition: Good Instructions (If sedation given, give patient instructions): Rib Fracture (ED) Additional Instructions: Take medications as directed. Perform coughing and deep breathing exercises, splint the left side with a pillow when performing his exercises to help with pain. Apply ice to the area. Follow-up with your primary care physician for recheck in 1-2 days. Return for any new, worsening, or concerning symptoms. Prescriptions: Lidocaine 5% Patch [Lidoderm] 1 patch TOPICAL DAILY #30 patch Ibuprofen [Motrin] 600 mg PO Q8HR PRN #30 tab PRN Reason: Pain Is patient prescribed a controlled substance at d/c from ED?: No If prescribed controlled substance>3 days was MAPS reviewed?: Prescribed <3 Days Referrals: Noe Ross DO [Primary Care Provider] - 1-2 days Time of Disposition: 22:46
--- NOTE | 2021-05-13 22:33 | CT ---
EXAMINATION TYPE: CT abdomen pelvis w con DATE OF EXAM: 05/13/2021 COMPARISON: 06/26/2020 HISTORY: left side abd pain Myeloma CT DLP: 512.3 mGycm Automated exposure control for dose reduction was used. CONTRAST: Performed with IV Contrast, patient injected with 100 mL of Isovue 300. Images obtained from the diaphragm to the floor the pelvis with IV contrast. Lung bases are clear of consolidation. There is mild subsegmental atelectasis lingula left upper lobe . Heart size is fairly normal. There is no pericardial effusion. Liver spleen stomach appear intact. Bile ducts are not dilated. There is 2 cm cyst in the superior ri ght lobe of the liver. There is no evidence of pancreatic mass. There is no adrenal mass. Kidneys show satisfactory contrast opacification. There is no hydronephrosi s. Ureters are not dilated. There is no retroperitoneal adenopathy. Bladder distends smoothly. There is no inguinal hernia. There are numerous calcified uterine fibroids. There is no free fluid in the p vale. I see no pelvic mass. There is probably a 1.5 Gabriel cyst on the right ovary. There is no mesenteric edema. There is no ascites or free air. There is no sign of a bowel obstructio n. Appendix not seen. No sign of thickened appendix. There is osteopenia. There is coarse trabeculae in the thoracic and lumbar spine. There is anterior w edging of multiple lower thoracic vertebra up to 45%. There are numerous lucencies in the bony pelvis and in the lumbar vertebra that could relate to multiple myeloma. There is some mild spurring in the femoral heads. There is hypertrophic facet arthropathy with lateral recess stenosis and some spinal stenosis at L4-5. Arthritic changes are more noticeable in the left hip joint. IMPRESSION: No evidence of acute abnormality of the abdomen and pelvis. Bony changes in the pelvis and lumbar spine consistent with myeloma. I do not see a significant new e compared to old exam. No definite acute fracture seen.
[2021-05-13] MEDS ORDERED: LIDOCAINE 5% PATCH TOPICAL STA (22:42)
[2021-05-13] MEDS ORDERED: KETOROLAC 15 MG/ML 1 ML VIAL IVP STA (22:42)
[2021-05-13] MEDS ORDERED: IBUPROFEN 600 MG STARTER PACK 4 TAB BTL PO STA (22:59)
[2021-05-13 23:05] VITALS: BP 136/72; PULSE 75; RESP 16
== END 2021-05-13 23:13 | disposition home or self-care (01) ==
LOC: EC 20:08
DX: S22.32XA Fracture of one rib, left side, initial encounter for closed fracture (principal); I10 Essential (primary) hypertension; Z79.82 Long term (current) use of aspirin; Z79.899 Other long term (current) drug therapy; W18.30XA Fall on same level, unspecified, initial encounter
CPT/HCPCS: 36415; 80053; 85025; 81001; 87086; 71101; 74177; 99284; 96374; 96375 ×2; J2405; J2270; J1885; Q9967

== ENCOUNTER 2021-11-30 09:23 | Emergency (ER) | payer MEDICARE ==
[2021-11-30 10:17] VITALS: BP 127/75; PULSE 89; RESP 16; TEMP 98.2
[2021-11-30] MEDS ORDERED: LIDOCAINE 1% INJ 10MG/ML (5 ML VIAL-PF) SQ ONE (11:26)
--- NOTE | 2021-11-30 11:31 | ED ---
General Adult HPI - General Chief complaint: Fall Stated complaint: Fall Time Seen by Provider: 11/30/21 11:09 Source: patient Mode of arrival: wheelchair Limitations: no limitations - History of Present Illness Initial comments: Dictation was produced using [employer] dictation software. please excuse any grammatical, word or spelling errors. Chief Complaint: 76-year-old female persists emergency department with facial laceration History of Present Illness: 76-year-old female states that last night she got up to go to the bathroom when she tripped. She fell and suffered a laceration to her left lateral face. Patient's daughter at the bedside went to go check on her nose that there was blood everywhere. Patient does not remember if she lost consciousness. She is noted to have episodic confusion from time to time due to multiple myeloma medications patient takes. Denies any pain. Denies any history of heart failure. Patient is not sure if she lost consciousness. The ROS documented in this emergency department record has been reviewed and confirmed by me. Those systems with pertinent positive or negative responses have been documented in the HPI. All other systems are other negative and/or noncontributory. PHYSICAL EXAM: General Impression: Alert and oriented x3, not in acute distress HEENT: Avulsion laceration to the left lateral periorbital area, extra-ocular movements intact, pupils equal and reactive to light bilaterally, mucous membranes moist. Cardiovascular: Heart regular rate and rhythm Chest: Able to complete full sentences, no retractions, no tachypnea Abdomen: abdomen soft, non-tender, non-distended, no organomegaly Musculoskeletal: Pulses present and equal in all extremities, no peripheral edema Motor: no focal deficits noted Neurological: CN II-XII grossly intact, no focal motor or sensory deficits noted Skin: Intact with no visualized rashes Psych: Normal affect and mood ED course: 76-year-old female presents emergency department for facial laceration, mechanical fall. Vital signs upon arrival are within acceptable limits. Computed tomography scan the face and head and C-spine shows no traumatic injuries. Was an incidental finding of right apical suspicious lung mass. This was addressed with daughter and patient at the bedside. They're advised follow- up with oncologist regarding this. Laceration was repaired at bedside. Patient's tetanus updated. EKG interpretation: Ventricular rate 80, sinus rhythm, AR interval 142, care is 86, QTC 235. No AR prolongation, no QTC prolongation, no ST or T-wave changes noted. No EKG for comparison. Overall, this EKG is unremarkable - Related Data Home Medications Medication Instructions Recorded Confirmed Zolpidem [Ambien] 10 mg PO HS PRN 05/08/15 05/13/21 Aspirin EC [Ecotrin Low Dose] 81 mg PO DAILY 01/18/18 05/13/21 Lenalidomide [Revlimid] 10 mg PO DIRECTED 01/18/18 05/13/21 Omeprazole 40 mg PO DAILY 01/18/18 05/13/21 amLODIPine [Norvasc] 2.5 mg PO BID 01/18/18 05/13/21 Dorzolamide 2% [Trusopt 2%] 1 drops BOTH EYES BID 12/11/19 05/13/21 HYDROcodone/APAP 5-325MG [[place] 1 tab PO Q6HR PRN 11/04/20 05/13/21 5-325] Brimonidine Tartrate/Timolol 1 drop BOTH EYES BID 05/13/21 05/13/21 [Combigan 0.2%-0.5% Eye Drops] Previous Rx's Medication Instructions Recorded Ibuprofen [Motrin] 600 mg PO Q8HR PRN #30 tab 05/13/21 Lidocaine 5% Patch [Lidoderm] 1 patch TOPICAL DAILY #30 patch 05/13/21 Allergies Allergy/AdvReac Type Severity Reaction Status Date / Time Sulfa (Sulfonamide Allergy Rash/Hives Verified 11/30/21 10:17 Antibiotics) Review of Systems ROS Statement: Those systems with pertinent positive or pertinent negative responses have been documented in the HPI. ROS Other: All systems not noted in ROS Statement are negative. Past Medical History Past Medical History: Cancer, Eye Disorder, Hypertension, Skin Disorder Additional Past Medical History / Comment(s): Glaucoma History of Any Multi-Drug Resistant Organisms: C-DIFF Date of last positivie culture/infection: 2010 MDRO Source:: stool Past Surgical History: Appendectomy Additional Past Surgical History / Comment(s): Stem cell transplant in 2010, port placement in 2010. Past Anesthesia/Blood Transfusion Reactions: No Reported Reaction Past Psychological History: No Psychological Hx Reported Smoking Status: Never smoker Past Alcohol Use History: Rare Past Drug Use History: None Reported - Past Family History Mother Family Medical History: No Reported History General Exam Limitations: no limitations Course Vital Signs 11/30/21 10:14 Temperature 98.2 F Pulse Rate 89 Respiratory 16 Rate Blood Pressure 127/75 O2 Sat by Pulse 98 Oximetry Procedures - Laceration Laceration #1 Consent Obtained: verbal consent Indication: laceration Site: face Description: linear, avulsion Depth: simple, single layer Anesthetic Used: lidocaine 1% Anesthesia Technique: local infiltration Pre-repair: wound explored Size of Sutures: 6-0 Technique: simple, interrupted Patient Tolerated Procedure: well Disposition Clinical Impression: Fall, Facial laceration Disposition: HOME SELF-CARE Condition: Fair Instructions (If sedation given, give patient instructions): Fall Prevention for Older Adults (ED) Additional Instructions: suture removal in 5 days Is patient prescribed a controlled substance at d/c from ED?: No Referrals: Noe Ross DO [Primary Care Provider] - 1-2 days
--- NOTE | 2021-11-30 11:37 | CT ---
EXAMINATION TYPE: CT brain darius juarez con DATE OF EXAM: 11/30/2021 COMPARISON: 01/18/2018 HISTORY: Fall, history of multiple myeloma CT DLP: 996.8 mGycm, Automated exposure control for dose reduction was used. CONTRAST: Patient injected with 0 mL of Isovue 300. CT of the brain is performed utilizing 3 mm thick sections through the posterior fossa and 3 mm thick sections through the remaining calvarium. Study is performed within 24 hours of arrival to the hospital. No abnormal hyperdensity is present to suggest an acute intracranial hemorrhage. No mass lesion is evident. No acute infarcts are evident. Some minimal periventricular white matter hypodensity may be present likely on the basis of chronic white matter ischemic change. Ventricles and sulci are mildly prominent for the patient age. Paranasal sinuses and mastoid air cells within the [id number] are clear. IMPRESSIONS: 1. Suggestion of age-related atrophy and minimal periventricular white matter ischemic changes. MRI c an be performed as follow-up as clinically indicated. CT cervical spine. COMPARISON: None CT of the cervical spine is performed in the axial plane at 2 mm thick sections. Reconstructed image s in the coronal, and sagittal plane are reviewed on the computer. No acute fractures are evident. There may be some very minimal anterior listhesis of C4 anteriorly on C5. Loss of disc height is present throughout the cervical spine greatest at C5-6 C6-7 and to a slightly lesser degree C4-5. Vertebral body heights are preserved. No spinal canal stenosis is evident. There is severe left and moderate right foraminal stenosis at C5-6 level. Mild left foraminal narrowi ng is present C4-5. Heterogenous appearance through the axial spine as well as the calvarium is compatible with the patie nt's known history of multiple myeloma. There is no irregular right apical lung mass with spiculated margins. This measures 3.4 x 1.7 cm on l rylie windows. Series 309, image 101. Additional workup with contrast CT chest is recommended. IMPRESSIONS: 1. No acute osseous abnormality cervical spine. 2. Degenerative disc changes greatest C5-6. 3. Uncovertebral joint hypertrophy contributing to severe left foraminal stenosis at C5-6 level. 4. Right apical suspicious lung mass. Additional evaluation with contrast CT of chest is recommended.
--- NOTE | 2021-11-30 11:43 | CT ---
EXAMINATION TYPE: CT facial bones wo con DATE OF EXAM: 11/30/2021 COMPARISON: CT orbits 01/18/2018 HISTORY: Fall, history of multiple myeloma, laceration under left orbit CT DLP: 784.8 mGycm CONTRAST: 0 mL of Isovue 300 Technique: The paranasal sinuses are examined in the axial plane at 2 mm thick sections. Reconstructed images i n the coronal plane were obtained. FINDINGS: Maxillary spine appears intact. Left inferior maxillary sinus mucosal thickening is present. The ethmoid air cells are clear. The s phenoid sinuses are clear. The frontal sinuses are clear. The septum is evaluated. There is septal deviation to the left. The ostiomeatal units are patent. Alisson air cells are present. Greater wing of the sphenoid are intact. Zygomatic arches are intact. Temporomandibular junctions are normal. No significant soft tissue swelling is present. There is diffuse thickening of the calvarium with underlying lucencies. Findings can be compatible wi th patient's known diagnosis of multiple myeloma. IMPRESSIONS: 1. Mucosal thickening within inferior left maxillary sinus
[2021-11-30] MEDS ORDERED: DIPH,PERTUS(ACELL)TETVAC-LF 0.5 ML VIAL IM ONE (12:07)
== END 2021-11-30 12:31 | disposition home or self-care (01) ==
LOC: EC 09:23
DX: S01.81XA Laceration without foreign body of other part of head, initial encounter (principal); I10 Essential (primary) hypertension; Z23 Encounter for immunization; Z79.82 Long term (current) use of aspirin; Z88.2 Allergy status to sulfonamides; Z79.899 Other long term (current) drug therapy; W01.0XXA Fall on same level from slipping, tripping and stumbling without subsequent striking against object, initial encounter; Y92.89 Other specified places as the place of occurrence of the external cause
CPT/HCPCS: 93005; 72125; 70486; 70450; 90715; 99285; 12011; 90471; J2001

== ENCOUNTER 2022-09-25 16:48 | Inpatient (IN) | payer MEDICARE ==
[2022-09-25] MEDS ORDERED: MORPHINE SULFATE 4 MG/ML SYRINGE IVP STA (17:14)
--- NOTE | 2022-09-25 18:26 | XR ---
EXAMINATION TYPE: XR Hip LT and AP Pelvis DATE OF EXAM: 09/25/2022 6:11 PM INDICATION: Patient age:Female; 77 years old; Reason for study: fall; PHH. COMPARISON: CT abdomen pelvis 05/13/2021 TECHNIQUE: The left hip was examined in the frontal and lateral projections and a AP pelvis. FINDINGS: Comminuted fracture of the left superior pubic ramus. No evidence for left femur fracture. Well-corticated osseous bodies adjacent to the posterior, superior acetabular margin, likely due to o steoarthritis. Severe left hip osteoarthritis without evidence for dislocation. Moderate degenerative changes of the lower lumbar spine and right hip joint. Coarse calcifications within central pelvis, likely degenerating uterine fibroid. IMPRESSION: 1. Comminuted superior pubic ramus fracture. 2. Well-corticated osseous bodies adjacent to the posterosuperior acetabulum, likely osteophytes give n severe osteoarthritis versus additional fracture.
--- NOTE | 2022-09-25 18:38 | ED ---
Lower Extremity Injury HPI - General Chief Complaint: Extremity Injury, Lower Stated Complaint: Fall, Hip Pain Time Seen by Provider: 09/25/22 17:06 Source: patient Mode of arrival: ambulatory Limitations: no limitations - History of Present Illness Initial Comments: Patient is a 77-year-old female presenting with chief complaint of left hip pain. She states that she slipped on ice yesterday and has had pain with weightbearing ever since. She is unsure if she hit her head, no loss of consciousness or blood thinners. She admits to some nausea, however this only comes on when the pain is at its worst and it is alleviated with the patient is able to rest the leg. No headache, neck pain, vision or hearing changes, numbness, tingling, weakness, chest pain, difficulty breathing, palpitations. - Related Data Home Medications Medication Instructions Recorded Confirmed Zolpidem [Ambien] 10 mg PO HS PRN 05/08/15 09/25/22 Aspirin EC [Ecotrin Low Dose] 81 mg PO DAILY 01/18/18 09/25/22 Lenalidomide [Revlimid] 10 mg PO DIRECTED 01/18/18 09/25/22 Omeprazole 40 mg PO DAILY 01/18/18 09/25/22 amLODIPine [Norvasc] 2.5 mg PO BID 01/18/18 09/25/22 Dorzolamide 2% [Trusopt 2%] 1 drops BOTH EYES BID 12/11/19 09/25/22 HYDROcodone/APAP 5-325MG [[place] 1 tab PO Q6HR PRN 11/04/20 09/25/22 5-325] Brimonidine Tartrate/Timolol 1 drop BOTH EYES BID 05/13/21 09/25/22 [Combigan 0.2%-0.5% Eye Drops] Cyanocobalamin [Vitamin B-12 1,000 mcg SQ Q21D 09/25/22 09/25/22 Injection] Tramadol (Unknown Strength) 1 dose PO DIRECTED 09/25/22 09/25/22 Zoledronic Acid [Zometa] 1 dose IV Q90D 09/25/22 09/25/22 dexAMETHasone [Decadron] 4 mg PO FR 09/25/22 09/25/22 Previous Rx's Medication Instructions Recorded Ibuprofen [Motrin] 600 mg PO Q8HR PRN #30 tab 05/13/21 Allergies Allergy/AdvReac Type Severity Reaction Status Date / Time Sulfa (Sulfonamide Allergy Rash/Hives Verified 09/25/22 18:34 Antibiotics) Review of Systems ROS Statement: Those systems with pertinent positive or pertinent negative responses have been documented in the HPI. ROS Other: All systems not noted in ROS Statement are negative. Past Medical History Past Medical History: Cancer, Eye Disorder, Hypertension, Skin Disorder Additional Past Medical History / Comment(s): Glaucoma History of Any Multi-Drug Resistant Organisms: C-DIFF Date of last positivie culture/infection: 2010 MDRO Source:: stool Past Surgical History: Appendectomy Additional Past Surgical History / Comment(s): Stem cell transplant in 2010, port placement in 2010. Past Anesthesia/Blood Transfusion Reactions: No Reported Reaction Past Psychological History: No Psychological Hx Reported Smoking Status: Never smoker Past Alcohol Use History: Rare Past Drug Use History: None Reported - Past Family History Mother Family Medical History: No Reported History General Exam Limitations: no limitations General appearance: alert, in no apparent distress Head exam: Present: atraumatic, normocephalic, normal inspection Eye exam: Present: normal appearance, PERRL, EOMI. Absent: scleral icterus, conjunctival injection, periorbital swelling Pupils: Present: normal accommodation Neck exam: Present: normal inspection, full ROM Respiratory exam: Present: normal lung sounds bilaterally. Absent: respiratory distress, wheezes, rales, rhonchi, stridor Cardiovascular Exam: Present: regular rate, normal rhythm, normal heart sounds. Absent: systolic murmur, diastolic murmur, rubs, gallop, clicks Left Hip exam: Present: internal rotation. Absent: full ROM Neurological exam: Present: alert, oriented X3, CN II-XII intact Psychiatric exam: Present: normal affect, normal mood Skin exam: Present: warm, dry, intact, normal color. Absent: rash Course Vital Signs 09/25/22 09/25/22 09/25/22 17:01 17:41 22:22 Temperature 98.1 F Pulse Rate 80 75 72 Respiratory 18 18 16 Rate Blood Pressure 159/79 142/70 146/76 O2 Sat by Pulse 100 100 98 Oximetry Medical Decision Making - Medical Decision Making Was pt. sent in by a medical professional or institution (, PA, HOUSE BUILDER, urgent care, hospital, or [facility]...) When possible be specific @ -No Did you speak to anyone other than the patient for history (EMS, parent, family, police, friend...)? What history was obtained from this source @ Daughter Did you review nursing and triage notes (agree or disagree)? Why? @ -I reviewed and agree with nursing and triage notes Were old charts reviewed (outside hosp., previous admission, EMS record, old EKG, old radiological studies, urgent care reports/EKG's, [facility] records)? Report findings @ -No old charts were reviewed Differential Diagnosis (chest pain, altered mental status, abdominal pain women, abdominal pain men, vaginal bleeding, weakness, fever, dyspnea, syncope, headache, dizziness, GI bleed, back pain, seizure, CVA, palpatations, mental health, musculoskeletal)? @ -Differential Musculoskeletal Muscular strain, contusion, ligament sprain, fracture, arthritis, septic arthritis, bursitis, cellulitis, muscle spasm, nerve compression, DVT, arterial occlusion, herpes zoster, electrolyte abnormality, tumor.... This is not meant to be in all inclusive list EKG interpreted by me (3pts min.). @ -As above X-rays interpreted by me (1pt min.). @ -Comminuted superior ramus fracture CT interpreted by me (1pt min.). @ -None done U/S interpreted by me (1pt. min.). @ -None done What testing was considered but not performed or refused? (CT, X-rays, U/S, labs)? Why? @ -None What meds were considered but not given or refused? Why? @ -None Did you discuss the management of the patient with other professionals (professionals i.e. , PA, HOUSE BUILDER, lab, RT, psych nurse, psychiatric social worker, clinical social work therapist, teacher, airline pilot/first officer, disease case manager rn)? Give summary @ -Discussed with orthopedist Dr. Tellez. Was smoking cessation discussed for >3mins.? @ -No Was critical care preformed (if so, how long)? @ -No Were there social determinants of health that impacted care today? How? (Homelessness, low income, unemployed, alcoholism, drug addiction, transportation, low edu. Level, literacy, decrease access to med. care, usp, rehab)? @ -No Was there de-escalation of care discussed even if they declined (Discuss DNR or withdrawal of care, Hospice)? DNR status @ -No What co-morbidities impacted this encounter? (DM, HTN, Smoking, COPD, CAD, Cancer, CVA, ARF, Chemo, Hep., AIDS, mental health diagnosis, sleep apnea, morbid obesity)? @ -None Was patient admitted / discharged? Hospital course, mention meds given and route, prescriptions, significant lab abnormalities, going to OR and other pertinent info. @ -Patient is a 77-year-old female presenting for evaluation post fall that occurred yesterday when she slipped on ice. She is having left-sided hip pain. X-ray shows pubic ramus fracture. Patient is given morphine in pain at rest is well controlled, however we tried to stand the patient up and she was unable to tolerate the pain. Patient likely requires admission for placement to subacute rehab. Spoke with orthopedist operator control room Dr. Tellez who accepted admission. Patient is agreeable with plan. I discuss this case with my attending Dr. Hoover Undiagnosed new problem with uncertain prognosis? @ -No Drug Therapy requiring intensive monitoring for toxicity (Heparin, Nitro, Insulin, Cardizem)? @ -No Were any procedures done? @ -No Diagnosis/symptom? @ -Pubic ramus fracture Acute, or Chronic, or Acute on Chronic? @ -Acute Uncomplicated (without systemic symptoms) or Complicated (systemic symptoms)? @ -Uncomplicated Side effects of treatment? @ -No Exacerbation, Progression, or Severe Exacerbation? @ -No Poses a threat to life or bodily function? How? (Chest pain, [place], [place], pneumonia, PE, COPD, DKA, ARF, appy, cholecystitis, CVA, Diverticulitis, Homicidal, Garcia icidal, threat to staff... and all critical care pts) @ -No - Lab Data Result diagrams: 09/26/22 02:22 09/26/22 02:22 Disposition Clinical Impression: Pubic ramus fracture Disposition: ADMITTED IP TO THIS [facility] Condition: Fair Time of Disposition: 22:11
--- NOTE | 2022-09-25 18:48 | CT ---
EXAMINATION TYPE: CT brain cspine wo con CT DLP: 1276.9 mGycm, Automated exposure control for dose reduction was used. DATE OF EXAM: 09/25/2022 6:19 PM COMPARISON: CT brain cervical spine 11/30/2021. CLINICAL INDICATION:Female, 77 years old with history of fall; fall TECHNIQUE: Brain: Multiple axial CT images of the brain were obtained without IV contrast. Cspine: Axial CT images from the skull base to the inferior aspect of T2 we obtained without intraven ous contrast. Coronal and sagittal reformatted images were also reviewed. FINDINGS: Brain: Extra-axial spaces: No abnormal extra-axial fluid collections. Ventricular system: Dilatation in proportion to cerebral atrophy. Cerebral parenchyma: Cerebral atrophy. No acute intraparenchymal hemorrhage or mass effect. The mojica -white junction is well differentiated. Scattered hypoattenuating areas are seen within the white mat ter. Cerebellum: Unremarkable. Mass effect: No evidence of midline shift. Intracranial vasculature: Atherosclerotic calcifications of the intracranial vessels. Soft tissues: Normal. Calvarium/osseous structures: No depressed skull fracture. Paranasal sinuses and mastoid air cells: Clear.Mastoid air cells are Clear Visualized orbits: Bilateral aphakia Cervical spine: Fracture: None. Osseous structures: Multilevel degenerative disc disease changes with endplate spurring and disc oste ophyte complex's, this is most pronounced at C5-C6.. Multilevel severe uncovertebral and facet hypert rophy. Vertebral alignment: Within normal limits. Spinal canal/Neural Foramina: No evidence of significant spinal canal narrowing. Facet joint uncovert ebral joint arthropathy scattered throughout the cervical spine with varying degrees of neural forami nal stenosis. Neck soft tissues: Prevertebral soft tissues are within normal limits. Other: Large airways patent. Demonstrate some irregular right apical lung mass with spiculated margin s. This measures at least 2.8 x 2.9 cm (series 305, image 101), visually appears increased in size fr om prior CT examination of 11/30/2021. Previous CT lung mass measured 3.4 x 1.7 cm. IMPRESSION: 1. No acute intracranial process. 2. Interval increase in size of right apical lung mass, further evaluation with contrast-enhanced CT chest versus CT PET is recommended if not already performed. 3. Generalized cerebral atrophy and nonspecific areas of white matter hypoattenuation likely related to microangiopathy. 4. No evidence for cervical spine fracture. 5.Moderate degenerative changes of the cervical spine.
[2022-09-25] MEDS ORDERED: NALOXONE 0.4 MG/ML 1 ML VIAL IV PRN (22:08)
[2022-09-25] MEDS ORDERED: ACETAMINOPHEN TAB 325 MG TAB PO PRN (22:08)
[2022-09-25] MEDS: MORPHINE SULFATE 4 MG/ML SYRINGE IV PRN (22:22)
--- NOTE | 2022-09-26 01:56 | P.CONS ---
History of Present Illness - Reason for Consult Consult date: 09/26/22 - History of Present Illness The patient is a 77-year-old female with a PMH of hypertension, multiple myeloma in remission, and glaucoma who presents to the emergency room after a fall. The patient reports that she was at her sister's house when she was walking to her car and slipped on ice, falling to her left side. She reports significant pain afterwards but was able to walk with assistance. She reports left hip pain radiating down into her leg to the knee. Denies experiencing head trauma or loss of consciousness. Reports that her pain is well-controlled at the time of interview, rated at a 2 out of 10. Denied experiencing chest discomfort or shortness of breath. Also denied nausea, vomiting, abdominal pain, diarrhea. Hip and pelvis x-ray revealed a comminuted superior pubic ramus fracture. Head and cervical spine CT revealed a right apical lung mass increased in size with follow-up imaging recommended. Review of systems: Pertinent positives and negatives as discussed in HPI, a complete review of systems was performed and all other systems are negative. Physical examination: Vital signs reviewed General: non toxic, no distress, appears at stated age, normal weight Derm: no unusual rashes/lesions, warm Head: atraumatic, normocephalic, symmetric Eyes: EOMI, no lid lag, anicteric sclera, pupils equal round reactive to light ENT: Nose and ears atraumatic Neck: No cervical lymphadenopathy, trachea midline, supple Mouth: no lip lesion, mucus membranes moist Cardiovascular: S1S2 reg, no murmur, positive dorsalis pedis pulse bilateral, no edema Lungs: CTA bilateral, no rhonchi, no rales, no accessory muscle use Abdominal: soft, nontender to palpation, no guarding Ext: muscle strength 5 out of 5 in all extremities grossly except LLE due to pain, strength 3/5 of LLE proximally and distally, no gross muscle atrophy, no contractures, Neuro: CN II-XI grossly intact, no gross focal neuro deficits Psych: Alert, oriented, appropriate affect Assessment: R apical lung mass Chronic conditions: HTN, Multiple Myeloma, Glaucoma Traumatic Pubic ramus fracture Imaging: Hip and pelvis x-ray revealed a comminuted superior pubic ramus fracture. Head and cervical spine CT revealed a right apical lung mass increased in size with follow-up imaging recommended. Plan: Patient denies prior knowledge of a lung mass Obtain CT Chest w/ contrast Defer management of fracture including pain control and DVT prophylaxis to the primary surgery service C/w the following home medications: -Norvasc 2.5 mg by mouth twice a day -Aspirin 81 mg by mouth daily -Combigan eye drops Past Medical History Past Medical History: Cancer, Eye Disorder, Hypertension, Skin Disorder Additional Past Medical History / Comment(s): Glaucoma History of Any Multi-Drug Resistant Organisms: C-DIFF Year Discovered:: 2010 MDRO Source:: stool Past Surgical History: Appendectomy Additional Past Surgical History / Comment(s): Stem cell transplant in 2010, port placement in 2010. Past Anesthesia/Blood Transfusion Reactions: No Reported Reaction Past Psychological History: No Psychological Hx Reported Smoking Status: Never smoker Past Alcohol Use History: Rare Past Drug Use History: None Reported - Past Family History Mother Family Medical History: Hypertension Medications and Allergies Home Medications Medication Instructions Recorded Confirmed Type Zolpidem [Ambien] 10 mg PO HS PRN 05/08/15 09/25/22 History Aspirin EC [Ecotrin Low Dose] 81 mg PO DAILY 01/18/18 09/25/22 History Lenalidomide [Revlimid] 10 mg PO DIRECTED 01/18/18 09/25/22 History Omeprazole 40 mg PO DAILY 01/18/18 09/25/22 History amLODIPine [Norvasc] 2.5 mg PO BID 01/18/18 09/25/22 History Dorzolamide 2% [Trusopt 2%] 1 drops BOTH EYES BID 12/11/19 09/25/22 History HYDROcodone/APAP 5-325MG [[place] 1 tab PO Q6HR PRN 11/04/20 09/25/22 History 5-325] Brimonidine Tartrate/Timolol 1 drop BOTH EYES BID 05/13/21 09/25/22 History [Combigan 0.2%-0.5% Eye Drops] Ibuprofen [Motrin] 600 mg PO Q8HR PRN #30 tab 05/13/21 09/25/22 Rx Cyanocobalamin [Vitamin B-12 1,000 mcg SQ Q21D 09/25/22 09/25/22 History Injection] Tramadol (Unknown Strength) 1 dose PO DIRECTED 09/25/22 09/25/22 History Zoledronic Acid [Zometa] 1 dose IV Q90D 09/25/22 09/25/22 History dexAMETHasone [Decadron] 4 mg PO FR 09/25/22 09/25/22 History Allergies Allergy/AdvReac Type Severity Reaction Status Date / Time Sulfa (Sulfonamide Allergy Rash/Hives Verified 09/25/22 18:34 Antibiotics) Physical Exam Vitals: Vital Signs Temp Pulse Pulse Resp BP BP Pulse Ox 09/25/22 23:34 97.9 F 69 18 151/74 98 09/25/22 22:22 72 16 146/76 98 09/25/22 17:41 75 18 142/70 100 09/25/22 17:01 98.1 F 80 18 159/79 100 Intake and Output 09/25/22 09/25/22 09/26/22 14:59 22:59 06:59 Intake Total 240 Balance 240 Intake: Oral 240 Other: Weight 45.813 kg
[2022-09-26] MEDS ORDERED: RX INFO: IV CONTRAST WAS GIVEN 1 EACH MISC MISCELLANE PRN (02:00)
[2022-09-26] MEDS: MORPHINE SULFATE 4 MG/ML SYRINGE IV PRN (02:03)
[2022-09-26] MEDS: amLODIPine 2.5 MG TAB PO SCH ×2 (02:04→08:45)
[2022-09-26 02:44] LABS: Anisocytosis Slight; HCT 29.6 % (34.0-46.0); HGB 9.5 gm/dL (11.4-16.0); Hypochromasia Slight; MCH 30.2 pg (25.0-35.0); MCHC 32.2 g/dL (31.0-37.0); MCV 93.6 fL (80.0-100.0); Mean Platelet Volume 9.1; Platelet Count 145 k/uL (150-450); RBC 3.16 m/uL (3.80-5.40); RDW 18.7 % (11.5-15.5); WBC 3.8 k/uL (3.8-10.6)
[2022-09-26 02:52] LABS: Partial Thromboplastin Time 22.5 sec (22.0-30.0); Prothrombin Time 10.4 sec (9.0-12.0)
[2022-09-26 02:55] LABS: African American GFR (CKD) >90 (>60 ml/min/1.73 sqM); Anion Gap 9 mmol/L; Blood Urea Nitrogen 13 mg/dL (7-17); Carbon Dioxide 25 mmol/L (22-30); Chloride 103 mmol/L (98-107); Glucose 78 mg/dL (74-99); Non-African American GFR(CKD) >90 (>60 ml/min/1.73 sqM); Potassium 3.4 mmol/L (3.5-5.1); Sodium 137 mmol/L (137-145)
[2022-09-26] MEDS ORDERED: PANTOPRAZOLE 40 MG TABLET PO SCH (07:30)
--- NOTE | 2022-09-26 08:06 | CT ---
EXAMINATION TYPE: CT chest w con CT DLP: 118.6 mGycm, Automated exposure control for dose reduction was used. DATE OF EXAM: 09/26/2022 7:44 AM COMPARISON: Chest radiograph 11/05/2020, PET CT 09/03/2016, MRI thoracic and lumbar spine 08/10/2020, MR I thoracic spine 04/06/2016. CLINICAL INDICATION:Female, 77 years old with history of R lung mass; TECHNIQUE: Multiple axial images were obtained through the chest following the administration of 100 cc of Isovue 300. FINDINGS: LUNGS/ PLEURA: No pleural effusion, pneumothorax, focal consolidation. Increased size of 2.9 x 2.8 c m spiculated masslike consolidation within the right upper lobe compared to prior examination in 2017 when this measured grossly 2.1 x 1.5 cm. AIRWAY: Patent and unremarkable.. HEART: Size within normal limits. No pericardial effusion. Mild coronary arterial calcifications. MEDIASTINUM: No gross evidence of adenopathy. VASCULATURE: No aortic aneurysm. MUSCULOSKELETAL: No acute osseous abnormalities. Anterior wedging of multiple lower thoracic vertebra e again demonstrated. Heterogenous appearance of the vertebral spine. SOFT TISSUES/LYMPH NODES: Left chest Port-A-Cath tubing remains in place with tip terminating in the low SVC. LOWER NECK: Subcentimeter hypodense nodules within both thyroid lobes. UPPER ABDOMEN: Stable 1 cm cyst within the liver. IMPRESSION: 1. Increased size of 2.9 x 2.8 cm spiculated masslike consolidation within the right upper lobe from 2017, previously measured 2.1 x 1.5 cm. This is concerning for primary lung malignancy. Consider furt her evaluation with PET/CT. 2. Similar multilevel anterior wedge compression deformities of the lower thoracic spine with diffuse heterogenous appearance suggestive of multiple myeloma.
[2022-09-26] MEDS: HYDROcodone/APAP 5-325MG 1 EACH TAB PO PRN ×2 (08:44→13:02)
[2022-09-26] MEDS ORDERED: DORZOLAMIDE HCL 2% DROPS 10 ML BTL BOTH EYES SCH (09:00)
[2022-09-26] MEDS ORDERED: TIMOLOL 0.5% OPHTH DROPS 5 ML BTL BOTH EYES SCH (09:00)
[2022-09-26] MEDS ORDERED: ASPIRIN 81 MG PO SCH (09:00)
[2022-09-26] MEDS ORDERED: BRIMONIDINE TARTRATE 0.2% DROPS 5 ML BTL BOTH EYES SCH (09:00)
--- NOTE | 2022-09-26 09:35 | P.HPOR ---
History of Present Illness H&P Date: 09/26/22 This patient is a 77-year-old female with past medical history of multiple myeloma in remission, hypertension that presented to [facility] emergency department yesterday with complaints of left hip pain following a fall. The patient states she fell in the driveway at her sister's house evening when she slipped on ice. Her sister was able to help her to her feet and get her back in the house. Patient states she woke up Monday morning with continued pain in the left hip, therefore she presented to the emergency department for evaluation. X-rays of the pelvis in emergency department revealed a left superior pubic ramus fracture. CT of the head and cervical spine incidentally revealed a lung mass, therefore a CT of the chest was ordered per internal medicine for further evaluation. Patient was admitted under the care of Dr. Tellez with a consult placed internal medicine. Patient is examined bedside this morning with Dr. Tellez. She is complaining of isolated left hip pain. Patient states she did have in the mild left hip prior to her fall as well. Patient has no additional complaints or concerns at this time. Vital signs stable. Past Medical History Past Medical History: Cancer, Eye Disorder, Hypertension, Skin Disorder Additional Past Medical History / Comment(s): Glaucoma History of Any Multi-Drug Resistant Organisms: C-DIFF Date of last positivie culture/infection: 2010 MDRO Source:: stool Past Surgical History: Appendectomy Additional Past Surgical History / Comment(s): Stem cell transplant in 2010, port placement in 2010. Past Anesthesia/Blood Transfusion Reactions: No Reported Reaction Past Psychological History: No Psychological Hx Reported Smoking Status: Never smoker Past Alcohol Use History: Rare Past Drug Use History: None Reported - Past Family History Mother Family Medical History: No Reported History Medications and Allergies Home Medications Medication Instructions Recorded Confirmed Type Zolpidem [Ambien] 10 mg PO HS PRN 05/08/15 09/25/22 History Aspirin EC [Ecotrin Low Dose] 81 mg PO DAILY 01/18/18 09/25/22 History Lenalidomide [Revlimid] 10 mg PO DIRECTED 01/18/18 09/25/22 History Omeprazole 40 mg PO DAILY 01/18/18 09/25/22 History amLODIPine [Norvasc] 2.5 mg PO BID 01/18/18 09/25/22 History Dorzolamide 2% [Trusopt 2%] 1 drops BOTH EYES BID 12/11/19 09/25/22 History HYDROcodone/APAP 5-325MG [[place] 1 tab PO Q6HR PRN 11/04/20 09/25/22 History 5-325] Brimonidine Tartrate/Timolol 1 drop BOTH EYES BID 05/13/21 09/25/22 History [Combigan 0.2%-0.5% Eye Drops] Ibuprofen [Motrin] 600 mg PO Q8HR PRN #30 tab 05/13/21 09/25/22 Rx Cyanocobalamin [Vitamin B-12 1,000 mcg SQ Q21D 09/25/22 09/25/22 History Injection] Tramadol (Unknown Strength) 1 dose PO DIRECTED 09/25/22 09/25/22 History Zoledronic Acid [Zometa] 1 dose IV Q90D 09/25/22 09/25/22 History dexAMETHasone [Decadron] 4 mg PO FR 09/25/22 09/25/22 History Allergies Allergy/AdvReac Type Severity Reaction Status Date / Time Sulfa (Sulfonamide Allergy Rash/Hives Verified 09/25/22 18:34 Antibiotics) Physical Examination On examination, patient is sitting up in bed in no apparent distress. She is alert and oriented 3. Her head appears normocephalic and atraumatic. Her breathing appears nonlabored. On inspection of her bilateral upper extremities, there are no obvious deformities or signs of trauma. On inspection of her right lower extremity, no obvious deformities or signs of trauma. On inspection of the left lower extremity, there are no open wounds, lacerations. No obvious deformities. No pain on palpation of the left thigh, knee, lower leg, ankle, foot. There is pain to as range of motion of the left hip. Motor and sensory function is intact of the left lower extremity. Left lower extremity warm and well perfused. Results Left hip and pelvis x-ray 09/25/22: Left superior pubic ramus fracture. No additional fractures identified. Severe left hip arthritis. - Labs Labs: Abnormal Lab Results - Last 24 Hours (Table) 09/26/22 09/26/22 Range/Units 02:22 02:22 RBC 3.16 L (3.80-5.40) m/uL Hgb 9.5 L (11.4-16.0) gm/dL Hct 29.6 L (34.0-46.0) % RDW 18.7 H (11.5-15.5) % Plt Count 145 L (150-450) k/uL Potassium 3.4 L (3.5-5.1) mmol/L Creatinine 0.51 L (0.52-1.04) mg/dL Calcium 8.0 L (8.4-10.2) mg/dL H & H 09/26/22 Range/Units 02:22 Hgb 9.5 L (11.4-16.0) gm/dL Hct 29.6 L (34.0-46.0) % Coagulation 09/26/22 Range/Units 02:22 INR 1.0 (<1.2) Result Diagrams: 09/26/22 02:22 09/26/22 02:22 Assessment and Plan Assessment: Left superior pubic ramus fracture status-post fall Severe left hip arthritis Plan: - Clinical and imaging findings were discussed with the patient. No surgical intervention is recommended at this time. Recommend evaluation by physical therapy. Patient may ambulate and weight-bear to tolerance on the left lower extremity as tolerated with a walker. - Pain medication as needed. - Medical management per internal medicine team. Recommendations following CT chest per internal medicine. - Case management consulted for discharge planning. Patient may need discharge to [facility].
--- NOTE | 2022-09-26 11:24 | P.PN ---
Subjective Progress Note Date: 09/26/22 Patient examined at bedside. Orthopedic surgery would like us to take on primary service due to patient's incidental finding of a 2.9 x 2.87 cm speculated masslike consolidation in the right upper lobe. Patient does have a history of multiple myeloma which was in remission. Masses concerning for malignancy. CT also noted multiple compression fractures in the thoracic spine. Patient denies chest pain shortness of breath. She does admit to pain. Objective - Vital Signs Vital signs: Vital Signs Temp 98.1 F 09/26/22 08:00 Pulse 66 09/26/22 08:00 Resp 16 09/26/22 08:00 BP 145/73 09/26/22 08:00 Pulse Ox 96 09/26/22 08:00 FiO2 Intake & Output 09/25/22 09/26/22 09/26/22 18:59 06:59 18:59 Intake Total 480 Balance 480 Weight 45.813 kg 45.813 kg Intake: Oral 480 Other: # Voids 1 - Exam General: [non toxic], [no distress], [appears at stated age] Derm: [warm], [dry] Head: [atraumatic], [normocephalic], [symmetric] Eyes: [EOMI], [no lid lag], [anicteric sclera] Mouth: [no lip lesion], [mucus membranes moist] Cardiovascular: [S1S2 reg], [no murmur], [positive posterior tibial pulse bilateral], Lungs: [CTA bilateral], [no rhonchi, no rales] , [no accessory muscle use] Abdominal: [soft], [ nontender to palpation], [no guarding], [no appreciable organomegaly] Ext: [no gross muscle atrophy], [no edema], [no contractures] Neuro: [ CN II-XI grossly intact], [no focal neuro deficits] Psych: [Alert], [oriented], [appropriate affect] - Labs CBC & Chem 7: 09/26/22 02:22 09/26/22 02:22 Labs: Abnormal Lab Results - Last 24 Hours (Table) 09/26/22 09/26/22 Range/Units 02:22 02:22 RBC 3.16 L (3.80-5.40) m/uL Hgb 9.5 L (11.4-16.0) gm/dL Hct 29.6 L (34.0-46.0) % RDW 18.7 H (11.5-15.5) % Plt Count 145 L (150-450) k/uL Potassium 3.4 L (3.5-5.1) mmol/L Creatinine 0.51 L (0.52-1.04) mg/dL Calcium 8.0 L (8.4-10.2) mg/dL Assessment and Plan Assessment: Assessment/plan [facility] will take over as primary care team today. 1. 2.9 x 2.8 cm spiculated masslike consolidation right upper lobe concerning for primary lung malignancy Consult pulmonary for biopsy Consult heme oncology for plan of treatment 2. Pubic ramus fracture secondary to traumatic fall Conservative management With the following PT OT 3. Multiple compression fractures of the thoracic spine likely related to #1 Pain control 4. History of multiple myeloma per patient was in remission Oncology consulted 5. History of hypertension Continue amlodipine 2.5 mg by mouth 6. History of glaucoma Continue Combigan eyedrops 7. GI/DVT prophlaxis 8. AM labs Disposition: Pending clinical course Time with Patient: Greater than 30
[2022-09-26] MEDS ORDERED: Potassium Replacement Protocol 1 EACH MISC MISCELLANE PRN (12:04)
[2022-09-26] MEDS: POTASSIUM CHLORIDE ER 20 MEQ TAB.ER PO SCH (13:00)
--- NOTE | 2022-09-26 15:00 | P.CNPUL ---
History of Present Illness Consult date: 09/26/22 Requesting physician: Inna Rhodes Reason for consult: other (Lung mass, abnormal CT of the chest) Chief complaint: Status post fall History of present illness: This is a 77-year-old female with history of hypertension, multiple myeloma, fell yesterday on ice, and she sustained left hip pain. Patient continued to have pain in the left hip, she presented to the ER, and x-rays of the pelvis showed left superior pubic ramus fracture. CT of the head and cervical spine incidentally showed a questionable lung mass. Hence a CT of the chest was performed and it showed a 2.92.8 spiculated masslike consolidation within the right upper lobe which was actually present back in 2017 however previously measured 2.11.5 cm, and previous PET scan did not show any hypermetabolic activity. CT of the chest also showed multiple wedge compression deformities in the lower thoracic spine consistent with multiple myeloma. Patient is a lifelong nonsmoker, she had no active pulmonary symptoms whatsoever, considering the abnormality on the CT of the chest, this consult was initiated. I discussed with the patient the findings and explained to her that she needs outpatient follow-up, and my plan is to repeat her PET scan on outpatient basis and decide whether to observe or proceed with transbronchial biopsy of the right upper lobe mass. All of this could be done on outpatient basis. Patient has no active pulmonary symptoms whatsoever today. Review of Systems Constitutional: Negative HEENT: History of glaucoma Pulmonary: As noted in HPI Hematologic: History of multiple myeloma, stem cell transplant in 2010. Cardiac: Negative GI: Negative Genitourinary: Negative Musculoskeletal as noted in HPI Psychiatric: Negative Urologic: Negative Endocrine: Negative Skin: Negative Neurologic: Negative Past Medical History Past Medical History: Cancer, Eye Disorder, Hypertension, Skin Disorder Additional Past Medical History / Comment(s): Glaucoma History of Any Multi-Drug Resistant Organisms: C-DIFF Date of last positivie culture/infection: 2010 MDRO Source:: stool Past Surgical History: Appendectomy Additional Past Surgical History / Comment(s): Stem cell transplant in 2010, port placement in 2010. Past Anesthesia/Blood Transfusion Reactions: No Reported Reaction Past Psychological History: No Psychological Hx Reported Smoking Status: Never smoker Past Alcohol Use History: Rare Past Drug Use History: None Reported - Past Family History Mother Family Medical History: No Reported History Medications and Allergies Home Medications Medication Instructions Recorded Confirmed Type Zolpidem [Ambien] 10 mg PO HS PRN 05/08/15 09/25/22 History Aspirin EC [Ecotrin Low Dose] 81 mg PO DAILY 01/18/18 09/25/22 History Lenalidomide [Revlimid] 10 mg PO DIRECTED 01/18/18 09/25/22 History Omeprazole 40 mg PO DAILY 01/18/18 09/25/22 History amLODIPine [Norvasc] 2.5 mg PO BID 01/18/18 09/25/22 History Dorzolamide 2% [Trusopt 2%] 1 drops BOTH EYES BID 12/11/19 09/25/22 History HYDROcodone/APAP 5-325MG [[place] 1 tab PO Q6HR PRN 11/04/20 09/25/22 History 5-325] Brimonidine Tartrate/Timolol 1 drop BOTH EYES BID 05/13/21 09/25/22 History [Combigan 0.2%-0.5% Eye Drops] Ibuprofen [Motrin] 600 mg PO Q8HR PRN #30 tab 05/13/21 09/25/22 Rx Cyanocobalamin [Vitamin B-12 1,000 mcg SQ Q21D 09/25/22 09/25/22 History Injection] Tramadol (Unknown Strength) 1 dose PO DIRECTED 09/25/22 09/25/22 History Zoledronic Acid [Zometa] 1 dose IV Q90D 09/25/22 09/25/22 History dexAMETHasone [Decadron] 4 mg PO FR 09/25/22 09/25/22 History Allergies Allergy/AdvReac Type Severity Reaction Status Date / Time Sulfa (Sulfonamide Allergy Rash/Hives Verified 09/25/22 18:34 Antibiotics) Physical Exam Vitals: Vital Signs Temp Pulse Pulse Resp BP BP Pulse Ox 09/26/22 08:00 98.1 F 66 16 145/73 96 09/26/22 02:28 98.2 F 67 18 134/75 96 09/25/22 23:34 97.9 F 69 18 151/74 98 09/25/22 22:22 72 16 146/76 98 09/25/22 17:41 75 18 142/70 100 09/25/22 17:01 98.1 F 80 18 159/79 100 Intake and Output 09/25/22 09/26/22 09/26/22 22:59 06:59 14:59 Intake Total 480 Balance 480 Intake: Oral 480 Other: Voiding Method Toilet # Voids 1 Weight 45.813 kg 45.813 kg Physical Exam: Revealed 77-year-old female, pleasant, in no form of respiratory distress. Head: Atraumatic, normocephalic. HEENT:[Neck is supple.] [No neck masses.] [No thyromegaly.] [No JVD.] Chest: [Clear throughout, no crackles, no rhonchi, no wheezes.] Cardiac Exam: [Normal S1 and S2, no S3 gallop, no murmur.] Abdomen: [Soft, nontender, no megaly, no rebound, no guarding, normal bowel sounds.] Extremities: [No clubbing, no edema, no cyanosis.] Neurological Exam: [No focal neurologic deficit.] Alert oriented 3. Psychiatric: Normal mood affect and normal mental status examination. Skin: No rashes. Results - Laboratory Findings CBC and BMP: 09/26/22 02:22 09/26/22 02:22 PT/INR, D-dimer PT 10.4 sec (9.0-12.0) 09/26/22 02:22 INR 1.0 (<1.2) 09/26/22 02:22 Abnormal lab findings: Abnormal Labs 09/26/22 09/26/22 02:22 02:22 RBC 3.16 L Hgb 9.5 L Hct 29.6 L RDW 18.7 H Plt Count 145 L Potassium 3.4 L Creatinine 0.51 L Calcium 8.0 L - Diagnostic Findings Chest x-ray: image reviewed CT scan - chest: image reviewed ( as noted in HPI.) Assessment and Plan Assessment: Impression: Chronic right upper lobe mass present in 2017 however seems to be larger on recent CT of the chest, hence will need further workup on outpatient basis and I will recommend likely a PET scan and decide based on the PET scan whether to observe or to perform transbronchial biopsy of the right upper lobe mass. Left superior pubic ramus fracture compared to fall History of multiple myeloma Recommendation: Discussed and reviewed with the patient the results of her CT of the chest Strongly recommend outpatient follow-up and outpatient PET scan Will clear from the pulmonary perspective for discharge if cleared by other consultants. Time with Patient: Greater than 30
[2022-09-26 15:40] VITALS: BP 117/72; PULSE 76; RESP 18; TEMP 97.8
--- NOTE | 2022-09-26 15:54 | P.CONS ---
History of Present Illness - Reason for Consult Consult date: 09/26/22 lung mass, hx of multiple myeloma Requesting physician: Bryanna Bee - Chief Complaint Fall, lung mass - History of Present Illness Patient is a 77-year-old female with a significant history of multiple myeloma. She follows with Dr. Jose Jorge. She is currently on Revlimid (10 mg PO days 1-14 Q 28 days) and dexamethasone for treatment. She was restarted on Revlimid and dex after recurrence of Myeloma in 2016. Disease has been stable. She presented to the ER for a fall yesterday on ice, and she sustained left hip injury. Xray pelvis/hip showed left superior pubic ramus fracture. CT of the head and cervical spine incidentally showed a lung mass which increased in size from previous study from 2017. CT of the chest was then obtained and and it showed a 2.92.8 spiculated masslike consolidation within the right upper lobe, which previously measured 2.11.[address] scan from 2017. patient reports chronic exertional shortness of breath but reports it is at baseline with no worsening of shortness of breath. Denies chest pain and dizziness. She is reporting left hip pain. No other reported complaints. l Review of Systems 10 point ROS is negative except as stated in the HPI Past Medical History Past Medical History: Cancer, Eye Disorder, Hypertension, Skin Disorder Additional Past Medical History / Comment(s): Glaucoma History of Any Multi-Drug Resistant Organisms: C-DIFF Year Discovered:: 2010 MDRO Source:: stool Past Surgical History: Appendectomy Additional Past Surgical History / Comment(s): Stem cell transplant in 2010, port placement in 2010. Past Anesthesia/Blood Transfusion Reactions: No Reported Reaction Past Psychological History: No Psychological Hx Reported Smoking Status: Never smoker Past Alcohol Use History: Rare Past Drug Use History: None Reported - Past Family History Mother Family Medical History: No Reported History Medications and Allergies Home Medications Medication Instructions Recorded Confirmed Type Zolpidem [Ambien] 10 mg PO HS PRN 05/08/15 09/25/22 History Aspirin EC [Ecotrin Low Dose] 81 mg PO DAILY 01/18/18 09/25/22 History Lenalidomide [Revlimid] 10 mg PO DIRECTED 01/18/18 09/25/22 History Omeprazole 40 mg PO DAILY 01/18/18 09/25/22 History amLODIPine [Norvasc] 2.5 mg PO BID 01/18/18 09/25/22 History Dorzolamide 2% [Trusopt 2%] 1 drops BOTH EYES BID 12/11/19 09/25/22 History HYDROcodone/APAP 5-325MG [[place] 1 tab PO Q6HR PRN 11/04/20 09/25/22 History 5-325] Brimonidine Tartrate/Timolol 1 drop BOTH EYES BID 05/13/21 09/25/22 History [Combigan 0.2%-0.5% Eye Drops] Ibuprofen [Motrin] 600 mg PO Q8HR PRN #30 tab 05/13/21 09/25/22 Rx Cyanocobalamin [Vitamin B-12 1,000 mcg SQ Q21D 09/25/22 09/25/22 History Injection] Tramadol (Unknown Strength) 1 dose PO DIRECTED 09/25/22 09/25/22 History Zoledronic Acid [Zometa] 1 dose IV Q90D 09/25/22 09/25/22 History dexAMETHasone [Decadron] 4 mg PO FR 09/25/22 09/25/22 History Allergies Allergy/AdvReac Type Severity Reaction Status Date / Time Sulfa (Sulfonamide Allergy Rash/Hives Verified 09/25/22 18:34 Antibiotics) Physical Exam Vitals: Vital Signs Temp Pulse Pulse Resp BP BP Pulse Ox 09/26/22 08:00 98.1 F 66 16 145/73 96 09/26/22 02:28 98.2 F 67 18 134/75 96 09/25/22 23:34 97.9 F 69 18 151/74 98 09/25/22 22:22 72 16 146/76 98 09/25/22 17:41 75 18 142/70 100 09/25/22 17:01 98.1 F 80 18 159/79 100 Intake and Output 09/25/22 09/26/22 09/26/22 22:59 06:59 14:59 Intake Total 480 Balance 480 Intake: Oral 480 Other: Voiding Method Toilet # Voids 1 Weight 45.813 kg 45.813 kg - Constitutional General appearance: average body habitus, no acute distress - EENT Eyes: anicteric sclerae, EOMI ENT: hearing grossly normal - Respiratory Respiratory: bilateral: CTA - Cardiovascular Rhythm: regular Heart sounds: normal: S1, S2 Abnormal Heart Sounds: no systolic murmur, no diastolic murmur, no rub, no S3 Gallop, no S4 Gallop, no click, no other - Integumentary Integumentary: normal - Neurologic Neurologic: CNII-XII intact - Musculoskeletal pain with movement of lower extremities, greater on left - Psychiatric Psychiatric: A&O x's 3, intact judgment & insight Results CBC & Chem 7: 09/26/22 02:22 09/26/22 02:22 Labs: Abnormal Lab Results - Last 24 Hours (Table) 09/26/22 09/26/22 Range/Units 02:22 02:22 RBC 3.16 L (3.80-5.40) m/uL Hgb 9.5 L (11.4-16.0) gm/dL Hct 29.6 L (34.0-46.0) % RDW 18.7 H (11.5-15.5) % Plt Count 145 L (150-450) k/uL Potassium 3.4 L (3.5-5.1) mmol/L Creatinine 0.51 L (0.52-1.04) mg/dL Calcium 8.0 L (8.4-10.2) mg/dL CT scan - chest: report reviewed CT Scan - head: report reviewed Assessment and Plan (1) Lung mass Current Visit: Yes Status: Acute Priority: High Code(s): R91.8 - OTHER NONSPECIFIC ABNORMAL FINDING OF LUNG FIELD SNOMED Code(s): 205604536 (2) Multiple myeloma Current Visit: Yes Status: Acute Priority: High Code(s): C90.00 - MULTIPLE MYELOMA NOT HAVING ACHIEVED REMISSION SNOMED Code(s): 641040834 Plan: Lung mass: -CT of the head and cervical spine incidentally showed a lung mass which increased in size from previous study from 2017. CT of the chest was then obtained and and it showed a 2.92.8 spiculated masslike consolidation within the right upper lobe, which previously measured 2.11.[address] scan from 2017. -Pulmonology placed on consult. Spoke with pulmonology team and they will f/u with patient outpatient and obtain PET scan, and will then determine if bronchoscopy is warranted for biopsy -Instructed pt to call office once PET scan is scheduled through Dr. Snow and schedule f/u appt with Dr. Jorge 1 week after scheduled PET scan Multiple Myelomoa -She is currently on Revlimid (10 mg PO days 1-14 Q 28 days), dexamethasone, and zometa -Plan to continue on current regimen -F/u planned once PET scan has been scheduled. Pt and family agreeable with POC
--- NOTE | 2022-09-26 16:04 | P.DS ---
Providers Date of admission: 09/26/22 10:17 Expected date of discharge: 09/26/22 Attending physician: Bryanna Bee DO Consults: 09/25/22 23:01 Consult Physician Urgent Consulting Provider: Inna Rhodes Consult Reason/Comments: medical management Do you want consulting provider notified?: Yes 09/26/22 10:47 Consult Physician Routine Consulting Provider: Rafa Santos Consult Reason/Comments: Lung mass Do you want consulting provider notified?: Yes 09/26/22 10:48 Consult Physician Routine Consulting Provider: Sukhwinder Nunez Consult Reason/Comments: lung mass with histoy of multiple myeloma Do you want consulting provider notified?: Yes Primary care physician: [place] [facility] Course: Admitting diagnoses: Traumatic fall Pubic ramus fracture Discharge diagnoses: Right apical lung mass Thoracic compression fractures Hypertension Glaucoma Traumatic fall Pubic ramus fracture The patient is a 77-year-old female with a PMH of hypertension, multiple myeloma in remission, and glaucoma who presents to the emergency room after a fall. The patient reports that she was at her sister's house when she was walking to her car and slipped on ice, falling to her left side. She reports significant pain afterwards but was able to walk with assistance. She reports left hip pain radiating down into her leg to the knee. Denies experiencing head trauma or loss of consciousness. Reports that her pain is well-controlled at the time of interview, rated at a 2 out of 10. Denied experiencing chest discomfort or shortness of breath. Also denied nausea, vomiting, abdominal pain, diarrhea. Hip and pelvis x-ray revealed a comminuted superior pubic ramus fracture. Conservative management was advised by orthopedic surgery. Head and cervical spine CT revealed a right apical lung mass increased in size with follow-up imaging recommended. Pulmonary and oncology were consulted. Patient is recommended to follow-up with pulmonary and oncology as an outpatient in 1-2 weeks. Patient requires a PET scan. General: [non toxic], [no distress], [appears at stated age] Derm: [warm], [dry] Head: [atraumatic], [normocephalic], [symmetric] Eyes: [EOMI], [no lid lag], [anicteric sclera] Mouth: [no lip lesion], [mucus membranes moist] Cardiovascular: [S1S2 reg], [no murmur], [positive posterior tibial pulse bilateral], Lungs: [CTA bilateral], [no rhonchi, no rales] , [no accessory muscle use] Abdominal: [soft], [ nontender to palpation], [no guarding], [no appreciable organomegaly] Ext: [no gross muscle atrophy], [no edema], [no contractures] Neuro: [ CN II-XI grossly intact], [no focal neuro deficits] Psych: [Alert], [oriented], [appropriate affect] Disposition: Home with home care Activity as tolerated Diet: Cardiac Condition: Fair Follow-up with PCP in 2-7 days Follow-up with pulmonary in 1 week Follow-up with hematology oncology in 1 week Patient Condition at Discharge: Fair Plan - Discharge Summary Discharge Rx Participant: Yes New Discharge Prescriptions: Continue Zolpidem [Ambien] 10 mg PO HS PRN PRN Reason: SLEEP Omeprazole 40 mg PO DAILY Aspirin EC [Ecotrin Low Dose] 81 mg PO DAILY Lenalidomide [Revlimid] 10 mg PO DIRECTED amLODIPine [Norvasc] 2.5 mg PO BID Dorzolamide 2% [Trusopt 2%] 1 drops BOTH EYES BID dexAMETHasone [Decadron] 4 mg PO FR Tramadol (Unknown Strength) 1 dose PO DIRECTED HYDROcodone/APAP 5-325MG [[place] 5-325] 1 tab PO Q6HR PRN PRN Reason: Pain Brimonidine Tartrate/Timolol [[place] 0.2%-0.5% Eye Drops] 1 drop BOTH EYES BID Ibuprofen [Motrin] 600 mg PO Q8HR PRN #30 tab PRN Reason: Pain Zoledronic Acid [Zometa] 1 dose IV Q90D Cyanocobalamin [Vitamin B-12 Injection] 1,000 mcg SQ Q21D Discharge Medication List Zolpidem [Ambien] 10 mg PO HS PRN 05/08/15 [History] Aspirin EC [Ecotrin Low Dose] 81 mg PO DAILY 01/18/18 [History] Lenalidomide [Revlimid] 10 mg PO DIRECTED 01/18/18 [History] Omeprazole 40 mg PO DAILY 01/18/18 [History] amLODIPine [Norvasc] 2.5 mg PO BID 01/18/18 [History] Dorzolamide 2% [Trusopt 2%] 1 drops BOTH EYES BID 12/11/19 [History] HYDROcodone/APAP 5-325MG [[place] 5-325] 1 tab PO Q6HR PRN 11/04/20 [History] Brimonidine Tartrate/Timolol [[place] 0.2%-0.5% Eye Drops] 1 drop BOTH EYES BID 05/13/21 [History] Ibuprofen [Motrin] 600 mg PO Q8HR PRN #30 tab 05/13/21 [Rx] Cyanocobalamin [Vitamin B-12 Injection] 1,000 mcg SQ Q21D 09/25/22 [History] Tramadol (Unknown Strength) 1 dose PO DIRECTED 09/25/22 [History] Zoledronic Acid [Zometa] 1 dose IV Q90D 09/25/22 [History] dexAMETHasone [Decadron] 4 mg PO FR 09/25/22 [History] Follow up Appointment(s)/Referral(s): [facility], [NON-STAFF] - 1 Week Noe Ross DO [Primary Care Provider] - 1-2 days Emilio Guadalupe MD [STAFF PHYSICIAN] - 1 Week Jose Jorge MD [STAFF PHYSICIAN] - 1 Week Discharge Disposition: HOME WITH HOME HEALTH SERVICES
--- NOTE | 2022-09-28 11:58 | CDI ---
Documentation Clarification Form Date: 09/28/2022 11:44:50 AM From: Hedy Hand Admit Date: 09/26/2022 10:17:00 AM Patient Name: Sarahy Vieyra Visit Number: [id number] Discharge Date: 09/26/2022 5:45:00 PM ATTENTION: The Clinical Documentation Specialists (CDI) and [facility] Coding Staff appreciate your assistance in clarifying documentation. Please respond to the clarification below the line at the bottom and electronically sign. The CDI & [facility] Coding staff will review the response and follow-up if needed. Please note: Queries are made part of the Legal Health Record. If you have any questions, please contact the author of this message via ITS. Dr. Bryanna Bee Conflicting documentation has been found in the medical record. As attending physician, please provide clarification. History and Physical 09-26-22: past medical history of multiple myeloma in remission. Progress Note 09-26-22: History of multiple myeloma per patient was in remission, consult oncology. Medical Consult 09-26-22: Multiple myeloma- not having achieved remission, currently on Revlimid, Dexamethasone, and Zometa. History/Risk Factors: patient is a 77 year old female, documented to have a history of multiple myeloma in remission, has HTN, glaucoma, hx of stem cell transplant. Clinical Indicators: patient presented after a fall in which she sustained a left pubic ramus fracture, work up found an increase to previous lung mass, suspicious for malignancy, and multiple wedge compression deformities in the thoracic spine consistent with MM. Treatment: per medical consult patient is on Revlimid, Dexamethasone, and Zometa Please clarify which diagnosis is most appropriate: [ ] Multiple Myeloma in remission [X ] Multiple Myeloma in relapse [ ] Multiple Myeloma not having achieved remission [ ] Other (please specify) [ ] Unable to determine MTDD
== END 2022-09-26 17:45 | disposition home health service (06) | DRG 536 ==
LOC: EC 16:48 → UNDOADMOB 22:14 → 5NMEDONC 22:14 → OBSVTOIN 09-26 10:17
PROVIDERS: ADMIT Internal Medicine; ATTEND Internal Medicine
DX: S32.592A Other specified fracture of left pubis, initial encounter for closed fracture (principal); Z94.84 Stem cells transplant status; C90.02 Multiple myeloma in relapse; W00.0XXA Fall on same level due to ice and snow, initial encounter; Y93.01 Activity, walking, marching and hiking; Y92.019 Unspecified place in single-family (private) house as the place of occurrence of the external cause; R91.8 Other nonspecific abnormal finding of lung field; I10 Essential (primary) hypertension; M16.12 Unilateral primary osteoarthritis, left hip; H40.9 Unspecified glaucoma; Z79.82 Long term (current) use of aspirin; Z88.2 Allergy status to sulfonamides; Z79.899 Other long term (current) drug therapy
CPT/HCPCS: 70450; 71260; 72125; 73502; 80048; 85027; 85610; 85730; 96374; 96376; 99285

== ENCOUNTER → 2022-09-30 | Outpatient (CLI) | payer MEDICARE ==
--- NOTE | 2022-10-02 15:57 | PE ---
EXAMINATION TYPE: PET CT fusion skull to thigh DATE OF EXAM: 09/30/2022 CLINICAL INDICATION:Female, 77 years old with history of C90.00; TECHNIQUE: Following the intravenous administration of 12.11 mCi of F-18 FDG, whole body images are performed from the skull base to the midthigh. Images are reviewed on the computer in the coronal, axial, and sagittal planes. Reconstructed rotating images are created on independent workstation and reviewed on the computer. A non-contrast CT is performed in conjunction with the PET scan. Glucose level 124 mg/dL COMPARISON: CT 09/26/2022 chest, 05/05/2021 abdomen pelvis, PET/CT None, FINDINGS: Mediastinal SUV mean is 1.3. Hepatic parenchyma SUV mean is 1.8. SKULL BASE AND NECK: No suspicious radiotracer activity. CHEST, MEDIASTINUM, AND HILAR REGION: * Right upper lobe consolidation measuring possibly minimally smaller at 2.7 x 2.3 cm, previously 2. 9 x 2.7 cm Max SUV 1.0 ABDOMEN AND PELVIS: No suspicious radiotracer activity. OSSEOUS STRUCTURES: No suspicious radiotracer activity. OTHER CT: Bilaterally aphakia. Left chest wall lead with tip terminating in the superior vena cava. H epatic cyst. Atherosclerosis of the arterial vasculature. Partially calcified uterine degenerating fi broid. IMPRESSION: Right upper lobe consolidation changes may be similar to fractionally smaller than prior on 09/26/2022 . No abnormal FDG activity. Findings favored to represent atelectasis/scarring. Continued surveillanc e with CT low dose chest yearly is recommended.
== END | disposition home or self-care (01) ==
LOC: RADPETMAIN 14:47
PROVIDERS: ATTEND Internal Medicine Hematology & Oncology
DX: C90.00 Multiple myeloma not having achieved remission (principal)
CPT/HCPCS: 78815; A9552

== ENCOUNTER → 2023-01-20 | Outpatient (CLI) | payer MEDICARE ==
--- NOTE | 2023-01-20 15:52 | CT ---
EXAMINATION TYPE: CT chest wo con DATE OF EXAM: 01/20/2023 COMPARISON: 09/26/2022, 11/30/2021, 09/30/2022 HISTORY: Lung nodule CT DLP: 98.1 mGycm, Automated exposure control for dose reduction was used. CONTRAST: Performed injected with 0 mL of Isovue 300. TECHNIQUE: Axial images were obtained at 5 mm thick sections. Reconstructed images are reviewed on [employer] computer in the coronal plane. FINDINGS: Portion of the thyroid visualized is normal. There is a spiculated mass of the right apex measuring 3.1 x 2.9 cm. This has an enlarged from previo us measurements of 2.7 x 2.9 cm. No enlarged mediastinal or hilar adenopathy is evident. The ascending aorta diameter at the level o f the main pulmonary artery is 3.3 cm. The main pulmonary artery diameter at the bifurcation is 2.4 cm. Mild coronary artery calcification is present. Limited CT sections are obtained through the upper abdomen. Abdomen is essentially unremarkable. IMPRESSIONS: 1. Slight enlargement of a spiculated right apical mass from most recent comparison. This is enlargin g from earlier exams. Precautionary 6 month follow-up is recommended.
== END | disposition home or self-care (01) ==
LOC: RADCTMAIN 10:41
PROVIDERS: ATTEND Internal Medicine Hematology & Oncology
DX: C90.00 Multiple myeloma not having achieved remission (principal)
CPT/HCPCS: 71250

== ENCOUNTER → 2023-05-16 | Outpatient (CLI) | payer MEDICARE ==
--- NOTE | 2023-05-16 13:39 | CT ---
EXAMINATION TYPE: CT chest wo con DATE OF EXAM: 05/16/2023 COMPARISON: 01/20/2023, PET/CT 09/30/2022 HISTORY: h/o lung nodule CT DLP: 109.3 mGycm. Automated Exposure Control for Dose Reduction was Utilized. TECHNIQUE: CT scan of the thorax is performed without IV contrast. FINDINGS: LUNGS: Spiculated mass in the right upper lobe measures 2.6 x 2.6 cm and previously measured 3.2 x 2. 9 cm. There is emphysematous changes which are stable and areas of subsegmental atelectasis or scarring. No pneumothorax or pleural effusion.. MEDIASTINUM: Lack of IV contrast is noted to limit evaluation for mediastinal and especially hilar ad enopathy. There are no definitive greater than 1 cm hilar or mediastinal lymph nodes. The heart is en larged. There is atherosclerotic change aorta. Coronary artery calcification and calcification of the aortic valve noted. Aorta measures a maximal dimension of 3.3 cm.. A Mediport catheter is seen with the tip overlying the SVC. OTHER: There is hypertrophic and degenerative changes of the spine. Shoulder arthropathy. Numerous co mpression deformities and diffuse osteopenia. Heterogeneous marrow density within the rib cage and ma nubrium of the sternum.. IMPRESSION: 1. Slight interval decrease in size of the spiculated mass right upper lobe now measuring 2.6 x 2.6 c m and previously measuring 3.2 x 2.9 cm. 2. Diffuse osteopenia multiple compression deformities within the vertebral column are stable. Hetero geneous marrow noted within the manubrium is stable. Finding is stable dating back to the CT scan of 09/26/2022 which predated the PET/CT scan with no definite suspicious uptake seen in the region.
== END | disposition home or self-care (01) ==
LOC: RADCTMAIN 12:18
PROVIDERS: ATTEND Internal Medicine Hematology & Oncology
DX: C90.00 Multiple myeloma not having achieved remission (principal); M85.88 Other specified disorders of bone density and structure, other site; M54.40 Lumbago with sciatica, unspecified side; L22 Diaper dermatitis; R91.8 Other nonspecific abnormal finding of lung field; Z87.01 Personal history of pneumonia (recurrent)
CPT/HCPCS: 71250

== ENCOUNTER → 2023-07-18 | Outpatient (CLI) | payer MEDICARE ==
--- NOTE | 2023-07-18 20:42 | XR ---
EXAMINATION TYPE: XR chest 2V DATE OF EXAM: 07/18/2023 4:47 PM CLINICAL INDICATION:Female, 78 years old with history of R051,R0602 ACUTE COUGH,SOB; [facility] COMPARISON: Chest radiographs from 05/05/2021. TECHNIQUE: XR chest 2V Frontal and lateral views of the chest. FINDINGS: Lungs/Pleura: There is flattening of the diaphragm with increased lucency of the lungs. No evidence o f pneumothorax, pleural effusion or focal consolidation. Pulmonary vascularity: Unremarkable. Heart/mediastinum: Cardiomediastinal silhouette is unremarkable. Musculoskeletal: No acute osseous pathology. Mild pectus excavatum. Other findings: None Lines/Tubes: Left chest wall catheter with tip terminating at the superior cavoatrial junction. Unclear if this is an abandoned catheter. No Evxcjf-r-Oqwi injection site identified. This is unchanged from 2020. IMPRESSION: 1. No acute cardiopulmonary disease process. 2. COPD changes.
== END | disposition home or self-care (01) ==
LOC: RADXRYALE 16:36
PROVIDERS: ATTEND Physician Assistant Medical
DX: J44.9 Chronic obstructive pulmonary disease, unspecified (principal); R05.1 Acute cough; R06.02 Shortness of breath
CPT/HCPCS: 71046

== ENCOUNTER → 2023-09-26 | Outpatient (CLI) | payer MEDICARE ==
--- NOTE | 2023-09-26 15:10 | XR ---
EXAMINATION TYPE: XR chest 2V DATE OF EXAM: 09/26/2023 COMPARISON: 07/18/2023. HISTORY: Cough and dyspnea. TECHNIQUE: Frontal and lateral views of the chest are obtained. IMPRESSION: 2.7 cm right upper lobe lung nodule is unchanged. There is no focal consolidation. Cardiac silhouette and pulmonary vessels are within normal limits. Increase in the thoracic kyphosis with wedging of vertebral bodies and degenerative changes are uncha nged.
== END | disposition home or self-care (01) ==
LOC: RADXRYALE 10:43
PROVIDERS: ATTEND Physician Assistant Medical
DX: M40.294 Other kyphosis, thoracic region (principal); M47.814 Spondylosis without myelopathy or radiculopathy, thoracic region; R91.1 Solitary pulmonary nodule
CPT/HCPCS: 71046

== ENCOUNTER 2024-05-04 20:08 | Emergency (ER) | payer MEDICARE ==
[2024-05-04 20:12] VITALS: RESP 18
--- NOTE | 2024-05-04 20:29 | ED ---
Fall HPI - General Chief Complaint: Fall Stated Complaint: fall, head injury Time Seen by Provider: 05/04/24 20:16 Source: patient Mode of arrival: ambulatory - History of Present Illness Initial Comments: 78-year-old female brought in by her daughter after head injury. Daughter states the patient had an alcoholic drink this evening and while walking in the backyard lost her balance and hit her head on the concrete. Patient has a 3 cm laceration to the back of the head. No loss of consciousness. No blood thinners. No complaints of any other injuries. Her tetanus is up-to-date. No nausea vomiting or dizziness. - Related Data Home Medications Medication Instructions Recorded Confirmed Zolpidem [Ambien] 10 mg PO HS PRN 05/08/15 09/25/22 Aspirin EC [Ecotrin Low Dose] 81 mg PO DAILY 01/18/18 09/25/22 Lenalidomide [Revlimid] 10 mg PO DIRECTED 01/18/18 09/25/22 Omeprazole 40 mg PO DAILY 01/18/18 09/25/22 amLODIPine [Norvasc] 2.5 mg PO BID 01/18/18 09/25/22 Dorzolamide 2% [Trusopt 2%] 1 drops BOTH EYES BID 12/11/19 09/25/22 HYDROcodone/APAP 5-325MG [[place] 1 tab PO Q6HR PRN 11/04/20 09/25/22 5-325] Brimonidine Tartrate/Timolol 1 drop BOTH EYES BID 05/13/21 09/25/22 [Combigan 0.2%-0.5% Eye Drops] Cyanocobalamin [Vitamin B-12 1,000 mcg SQ Q21D 09/25/22 09/25/22 Injection] Tramadol (Unknown Strength) 1 dose PO DIRECTED 09/25/22 09/25/22 Zoledronic Acid [Zometa] 1 dose IV Q90D 09/25/22 09/25/22 dexAMETHasone [Decadron] 4 mg PO FR 09/25/22 09/25/22 Previous Rx's Medication Instructions Recorded Ibuprofen [Motrin] 600 mg PO Q8HR PRN #30 tab 05/13/21 HYDROcodone/APAP 5-325MG [[place] 1 each PO Q4HR PRN #18 tab 09/26/22 5-325] Allergies Allergy/AdvReac Type Severity Reaction Status Date / Time Sulfa (Sulfonamide Allergy Rash/Hives Verified 05/04/24 20:12 Antibiotics) Review of Systems ROS Statement: Those systems with pertinent positive or pertinent negative responses have been documented in the HPI. ROS Other: All systems not noted in ROS Statement are negative. Past Medical History Past Medical History: Cancer, Eye Disorder, Hypertension, Skin Disorder Additional Past Medical History / Comment(s): Glaucoma History of Any Multi-Drug Resistant Organisms: C-DIFF Date of last positivie culture/infection: 2010 MDRO Source:: stool Past Surgical History: Appendectomy Additional Past Surgical History / Comment(s): Stem cell transplant in 2010, port placement in 2010. Past Anesthesia/Blood Transfusion Reactions: No Reported Reaction Past Psychological History: No Psychological Hx Reported Smoking Status: Never smoker Past Alcohol Use History: Rare Past Drug Use History: None Reported - Past Family History Mother Family Medical History: No Reported History General Exam Limitations: no limitations General appearance: alert, in no apparent distress Expanded Head exam: Present: laceration (3 cm) Eye exam: Present: normal appearance Neck exam: Present: normal inspection Respiratory exam: Absent: respiratory distress Cardiovascular Exam: Present: regular rate Neurological exam: Present: alert, oriented X3 Expanded Eye Response: (4) open spontaneously Motor Response: (6) obeys commands Verbal Response: (5) oriented Juan Carlos Total: 15 Psychiatric exam: Present: normal affect, normal mood Course Vital Signs 05/04/24 05/04/24 20:10 22:46 Temperature 98.5 F 97.8 F Pulse Rate 61 75 Respiratory 18 18 Rate Blood Pressure 132/83 122/78 O2 Sat by Pulse 96 98 Oximetry Procedures - Laceration Laceration #1 Consent Obtained: verbal consent Indication: laceration Site: scalp Size (cm): 3 Description: linear Pre-repair: wound explored Type of Sutures: other (ruben) Number of Sutures: 4 Medical Decision Making - Medical Decision Making Was pt. sent in by a medical professional or institution (, PA, WEARING APPAREL PRESSER, urgent care, hospital, or retirement...) When possible be specific @ -No Did you speak to anyone other than the patient for history (EMS, parent, family, police, friend...)? What history was obtained from this source @ -History supplemented by daughter Did you review nursing and triage notes (agree or disagree)? Why? @ -I reviewed and agree with nursing and triage notes Were old charts reviewed (outside hosp., previous admission, EMS record, old EKG, old radiological studies, urgent care reports/EKG's, retirement records)? Report findings @ -No old charts were reviewed Differential Diagnosis (chest pain, altered mental status, abdominal pain women, abdominal pain men, vaginal bleeding, weakness, fever, dyspnea, syncope, headache, dizziness, GI bleed, back pain, seizure, CVA, palpatations, mental health, musculoskeletal)? @ -Differential includes laceration, concussion, fracture, hemorrhage, this is not an all-inclusive list EKG interpreted by me (3pts min.). @ -As above X-rays interpreted by me (1pt min.). @ -None done CT interpreted by me (1pt min.). @ -CT shows posterior scalp hematoma. No evidence of fracture. Right upper lung pulmonary nodule with spiculation has more solid appearance on today's exam concerning for active malignancy. Trace bilateral mastoid air cell effusions. No acute intracranial process. No evidence of cervical spine fracture. Diffuse osteopenia. Moderate multilevel degenerative disc disease U/S interpreted by me (1pt. min.). @ -None done What testing was considered but not performed or refused? (CT, X-rays, U/S, labs)? Why? @ -None What meds were considered but not given or refused? Why? @ -None Did you discuss the management of the patient with other professionals (professionals i.e. , PA, WEARING [employer]PAREL PRESSER, lab, RT, psych nurse, long term care social worker, library serials assistant, teacher, medical laboratory technical officer, complex case manager)? Give summary @ -No Was smoking cessation discussed for >3mins.? @ -No Was critical care preformed (if so, how long)? @ -No Were there social determinants of health that impacted care today? How? (Homelessness, low income, unemployed, alcoholism, drug addiction, transportation, low edu. Level, literacy, decrease access to med. care, nursing home, rehab)? @ -No Was there de-escalation of care discussed even if they declined (Discuss DNR or withdrawal of care, Hospice)? DNR status @ -No What co-morbidities impacted this encounter? (DM, HTN, Smoking, COPD, CAD, Cancer, CVA, ARF, Chemo, Hep., AIDS, mental health diagnosis, sleep apnea, morbid obesity)? @ -None Was patient admitted / discharged? Hospital course, mention meds given and route, prescriptions, significant lab abnormalities, going to OR and other pertinent info. @ -78-year-old female presenting with chief complaint of head injury. Patient fell backwards hitting her head on concrete. She has a 3 cm laceration to the scalp. No loss of consciousness or blood thinners. No focal neurological deficits on exam. CT shows no acute intracranial process or cervical spine fracture. There is a right upper lung pulmonary nodule noted. Patient has history of multiple myeloma, she currently follows with Dr. Jorge. Patient and daughter are informed of this finding and state that they are aware of the nodule. Laceration is repaired. Patient and daughter educated on today's findings and wound care. Discharged. Follow-up with PCP and oncologist. Report back to ER with any new or worsening symptoms. Discussed return parameters and answered all questions. Patient conveyed verbal understanding and agreed to the plan. My attending is Dr. Lomas Undiagnosed new problem with uncertain prognosis? @ -No Drug Therapy requiring intensive monitoring for toxicity (Heparin, Nitro, Insulin, Cardizem)? @ -No Were any procedures done? @ -Laceration repair Diagnosis/symptom? @ -Head injury, scalp laceration Acute, or Chronic, or Acute on Chronic? @ -Acute Uncomplicated (without systemic symptoms) or Complicated (systemic symptoms)? @ -Uncomplicated Side effects of treatment? @ -No Exacerbation, Progression, or Severe Exacerbation? @ -No Poses a threat to life or bodily function? How? (Chest pain, [place], [place], pneumonia, PE, COPD, DKA, ARF, appy, cholecystitis, CVA, Diverticulitis, Homicidal, Suicidal, threat to staff... and all critical care pts) @ -Unlikely Disposition Clinical Impression: Head injury, Scalp laceration Disposition: HOME SELF-CARE Condition: Good Instructions (If sedation given, give patient instructions): Head Injury (ED), Staple Care (ED), Head Laceration (ED) Additional Instructions: Follow-up with PCP. Report back to ER with any new or worsening symptoms. Continue following with your PCP and oncologist regarding the pulmonary nodule. Ruben may be removed in 7 to 10 days. Do not wash her hair for 24 hours to avoid reactivating any bleeding. Afterwards you may wash gently with soap and water. Is patient prescribed a controlled substance at d/c from ED?: No Referrals: Leonor Pastrana, PAC [Primary Care Provider] - 1-2 days Time of Disposition: 22:20
--- NOTE | 2024-05-04 21:54 | CT ---
EXAMINATION TYPE: CT brain cspine wo con CT DLP: 1204.5 mGycm, Automated exposure control for dose reduction was used. DATE OF EXAM: 05/04/2024 9:03 PM COMPARISON: Pet/CT 09/30/2022, CT chest 05/16/2023, CT chest 09/26/2022. CLINICAL INDICATION: Female, 78 years old with history of fall; Fall, laceration to back of head. TECHNIQUE: Brain: Multiple axial CT images of the brain were obtained without IV contrast. Cspine: Axial CT images from the skull base to the inferior aspect of T2 we obtained without intraven ous contrast. Coronal and sagittal reformatted images were also reviewed. . FINDINGS: Brain: Extra-axial spaces: No abnormal extra-axial fluid collections. Ventricular system: Within normal limits Cerebral parenchyma: No acute intraparenchymal hemorrhage or mass effect. The mojica-white junction is well differentiated. Cerebellum: Unremarkable. Mass effect: No evidence of midline shift. Intracranial vasculature: unremarkable Soft tissues: Posterior scalp hematoma measuring up to 19 mm Calvarium/osseous structures: No depressed skull fracture. Paranasal sinuses and mastoid air cells: Trace bilateral mastoid air cell effusions. Visualized orbits: Bilaterally aphakia. Cervical spine: Fracture: None. Osseous structures: Multilevel degenerative disc disease changes with endplate spurring and disc oste ophyte complex's. Diffuse osseous demineralization. Vertebral alignment: Grade 1 anterolisthesis of C4 on C5. Spinal canal/Neural Foramina: Disc osteophyte complexes at C5-C6 with at least mild spinal canal sten osis. Facet joint uncovertebral joint arthropathy scattered throughout the cervical spine with varyin g degrees of neural foraminal stenosis. Neck soft tissues: Prevertebral soft tissues are within normal limits. Other: The airway is patent. Right upper lung spiculated nodule measuring 29 x 24 mm which is increas e in size from prior on 05/16/2023 where it measured 29 x 20 mm with a more solid appearance on today 's exam. IMPRESSION: 1. Posterior scalp hematoma. No evidence of fracture. 2. Right upper lung pulmonary nodule with spiculation has more solid appearance on today's exam conc erning for active malignancy. If this is been treated previously this may represent recurrence. No FD G activity was seen on 09/30/2022 PET/CT in this lesion however it was slightly smaller at that time. Consider reevaluation with pet/CT and bronchoscopic guided tissue sampling if not already performed. 3. Trace bilateral mastoid air cell effusions. 4. No acute intracranial process. 5. No evidence of cervical spine fracture. Diffuse osteopenia. Evaluation. 6. Moderate multilevel degenerative disc disease. [facility], , 05/04/2024 9:51 PM
[2024-05-04 22:57] VITALS: BP 122/78; PULSE 75; TEMP 97.8
== END 2024-05-04 22:48 | disposition home or self-care (01) ==
LOC: EC 20:08
CPT/HCPCS: 12002; 70450; 72125; 99283

== ENCOUNTER → 2024-12-31 | Outpatient (CLI) | payer MEDICARE ==
--- NOTE | 2024-12-31 20:46 | XR ---
EXAMINATION TYPE: XR chest 2V DATE OF EXAM: 12/31/2024 4:59 PM COMPARISON: 09/26/2023 CLINICAL INDICATION: Female, 79 years old with history of R0602 SOB, TECHNIQUE: XR chest 2V view(s) obtained. FINDINGS: The heart size is normal. The pulmonary vasculature is normal. Right upper lobe opacity may be denser on the current examination. This area may also be accentuated due to overlying first rib. Size measurements are the stable. There is some wedge deformity of the mid and lower thoracic vertebral bodies. There is increased kyph osis. Findings were present previously. Port is present on the left with tip in the superior vena cava region. IMPRESSION: 1. Persistent right upper lung density. 2. Old wedge deformities to the mid and lower thoracic spine [facility], , 12/31/2024 8:43 PM
== END | disposition home or self-care (01) ==
LOC: RADXRYALE 16:45
PROVIDERS: ATTEND Physician Assistant Medical
DX: J98.4 Other disorders of lung (principal); M43.8X4 Other specified deforming dorsopathies, thoracic region
CPT/HCPCS: 71046